=== PATIENT | female | born 1955 | race Caucasian/White ===

== ENCOUNTER 2017-05-18 16:35 | Observation (INO) ==
[2017-05-18 18:03] LABS: Bilirubin,Urine Negative (Negative); Blood,Urine Negative (Negative); Clarity,Urine Clear (Clear); Color,Urine Yellow (Yellow); Glucose,Urine (UA) Normal (Normal); Ketones,Urine Negative (Negative); Leukocyte Esterase,Urine Negative (Negative); Nitrite,Urine Negative (Negative); PH,Urine 6.5 pH Units (5.0-8.0); Protein,Urine Negative (Neg-Trace); Specific Gravity,Urine 1.006 (1.010-1.025); Urobilinogen,Urine Normal (Normal)
[2017-05-18 18:05] LABS: Basophils % 0.5 %; Eosinophils # 0.2 K/mcL (0.0-0.6); Eosinophils % 2.2 %; Hematocrit 37.2 % (35.3-44.9); Hemoglobin 12.9 g/dL (11.5-15.4); Immature Granulocytes % 0.4 % (0-4); Lymphocytes # 1.6 K/mcL (0.6-4.6); Lymphocytes % 19.8 %; Mean Corpuscular HGB Conc 34.7 g/dL (31.6-35.5); Mean Corpuscular Hemoglobin 29.5 pg (28.0-33.3); Mean Corpuscular Volume 85.1 fL (83.0-100.0); Mean Platelet Volume 10.8 fL (9.4-12.4); Monocytes # 0.7 K/mcL (0.0-1.3); Monocytes % 8.3 %; Neutrophils # 5.7 K/mcL (1.6-8.9); Platelet Count 246 K/mcL (140-400); Red Blood Count 4.37 M/mcL (3.82-4.97); Red Cell Distribution Width 14.4 % (11.5-14.5); Segmented Neutrophils % 68.8 %
--- NOTE | 2017-05-18 18:09 | Emergency Department Note ---
Disposition Clinical Impression: Unstable angina Chest pain Qualifiers: Chest pain type: precordial pain Qualified Code(s): R07.2 - Precordial pain Disposition: Admitted As Inpatient Condition: Fair Referrals: Prema Villegas CNP [Primary Care Provider] - Forms: ED Satisfaction Letter Time of Disposition: 19:04 Chest Pain HPI - General Chief Complaint: ED Chest Pain Stated Complaint: CP/HTN Source: patient Limitations: no limitations Vital Signs Reviewed: Yes Nursing Notes Reviewed: Yes - History of Present Illness HPI Narrative: 62-year-old female history of one stent placement one month ago by Dr. Ospina'denny been having chest pain times the past 3 days. Patient states she has been having chest pressure in his mid substernal which she was taking her nitroglycerin that would resolve her pain. Patient states her pain changed from 5 out of 10-10 out of 10 sharp and radiating to neck and arms. Patient states her teeth hurt with the pain. Patient states his pain is new. Patient took her nitroglycerin with no resolution of her symptoms 2 sublingual pills. Patient states the pain went away after 2 hours on its own. Patient states the pain right now as 5 out of 10 pressure. Severity scale (1-10): 5 - Related Data Home Medications Medication Instructions Recorded Confirmed Amiloride/Hydrochlorothiazide 1 each PO DAILY 04/25/17 04/25/17 [Amiloride HCl-Hctz 5-50 mg Tab] Aspirin [Lo-Dose Aspirin EC] 81 mg PO DAILY 04/25/17 04/25/17 Atorvastatin [Lipitor] 40 mg PO HS 04/25/17 04/25/17 Cholecalciferol (D-3) [Vitamin D] 1,000 unit PO DAILY 04/25/17 04/25/17 Ibuprofen [Motrin] 800 mg PO Q8HR PRN 04/25/17 04/25/17 Levothyroxine Sodium [Levoxyl] 150 mcg PO DAILY 04/25/17 04/25/17 Metoprolol [Lopressor] 25 mg PO BID 04/25/17 04/25/17 Pantoprazole Sodium [Protonix] 40 mg PO DAILY 04/25/17 04/25/17 hydrOXYzine HCl [Hydroxyzine HCl] 25 mg PO HS 04/25/17 04/25/17 Metformin HCl [Glucophage] 1,000 mg PO BID 05/18/17 05/18/17 Nitroglycerin 0.3 mg SL Q5MIN PRN 05/18/17 05/18/17 Previous Rx's Medication Instructions Recorded Ticagrelor [Brilinta] 90 mg PO BID #60 tablet 04/25/17 Allergies Allergy/AdvReac Type Severity Reaction Status Date / Time No Known Allergies Allergy Verified 05/06/17 19:00 Review of Systems: Patient complains of diaphoresis as well when she had onset of chest pain All systems ED: reviewed and negative except as stated. Review of Systems: As Per HPI Constitutional: Denies: fever, chills, weakness Eyes: Denies: vision change ENT ED: Denies: congestion Cardiovascular: Reports: chest pain, dyspnea on exertion. Denies: palpitations Respiratory: Reports: cough Gastrointestinal: Denies: abdominal pain, nausea, vomiting Musculoskeletal: Denies: back pain Neurological: Denies: headache Psychiatric: Denies: anxiety Endocrine: Denies: fatigue Hematological/Lymphatic: Denies: easy bleeding Chest Pain PMH - Past Medical History Medical history: Reports: diabetes, GERD, hyperlipidemia, hypertension, myocardial infarction, thyroid disease Surgical history: Reports: hysterectomy, orthopedic, other Psychiatric history: Reports: no psych history [employer] [facility] history: Reports: no [employer] [facility] history - Social History Smoking Status: Never smoker Alcohol use: Reports: none Drug use: Reports: none Physical Exam Vital Signs Temperature 97.6 F 05/18/17 16:49 Pulse Rate 68 05/18/17 16:49 Respiratory Rate 22 05/18/17 16:49 Blood Pressure 124/103 05/18/17 16:49 O2 Sat by Pulse Oximetry 97 05/18/17 16:49 Temperature 97.6 F 05/18/17 16:49 Pulse Rate 68 05/18/17 16:49 Respiratory Rate 22 05/18/17 16:49 Blood Pressure 124/103 05/18/17 16:49 O2 Sat by Pulse Oximetry 98 05/18/17 18:04 Oxygen Delivery Oxygen Delivery Room Air 60-year-old female's alert and oriented 3. Patient is nondiaphoretic. Has no conversational dyspnea and is otherwise appears comfortable at this time. The patient is non-tachycardic and has regular rate and rhythm on auscultation of heart sounds. Patient does have retention with a systolic of 124 but a diastolic of 103 - General Limitations: no limitations General appearance: alert - Head Head exam: atraumatic, normocephalic, normal inspection - Eye Eye exam: Present: normal appearance - ENT ENT exam: normal exam, mucous membranes moist - Neck Neck exam: Present: normal inspection, full ROM, trachea midline - Chest Chest inspection: Present: normal inspection, symmetric chest wall rise - Respiratory Respiratory exam: Present: normal lung sounds bilaterally. Absent: respiratory distress, wheezes - Cardiovascular Cardiovascular exam: Present: regular rate, normal rhythm, normal heart sounds - Extremities Exam Extremities exam: Present: normal inspection, full ROM, normal capillary refill. Absent: tenderness, pedal edema, joint swelling, calf tenderness Course Vital Signs Temperature 97.6 F 05/18/17 16:49 Pulse Rate 68 05/18/17 16:49 Respiratory Rate 22 05/18/17 16:49 Blood Pressure 124/103 05/18/17 16:49 O2 Sat by Pulse Oximetry 97 05/18/17 16:49 Temperature 97.6 F 05/18/17 16:49 Pulse Rate 66 05/18/17 18:30 Respiratory Rate 18 05/18/17 18:30 Blood Pressure 129/71 05/18/17 18:30 O2 Sat by Pulse Oximetry 98 05/18/17 18:30 Oxygen Delivery Oxygen Delivery Nasal Cannula Chest Pain - MDM Narrative Medical decision making narrative: Patient had chest pain symptoms with radiation to left neck and jaw and both shoulders and upper extremities who states she had diaphoresis at the time of onset today with associated dyspnea on exertion that was not responsive to nitroglycerin 2. Patient states she has been having chest pain/pressure for the past 3 days that resolved with nitroglycerin use. Patient is high suspicious for ACS/DE, unstable angina versus patient's pain symptoms as been happening at rest as well. . Patient denies any pleuritic sounds chest pain and has no shortness of breath and has O2 sats 97 and 98% on room air which lowers my concern for PE at this time. Patient really has one stent [address] Ospina. Patient also has a history of diabetes and hypercholesterolemia. Plan is to start patient on aspirin 324 milligrams, nitroglycerin trial to reduce patient's pain to 0. Patient has a heartscore of 6 Patient's pain currently 1/10 after 1 dose of nitroglycerin. Patient's labs came back unremarkable with no elevation of troponin and no elevation of BNP, no signs UTI. Discussed patient's workup with her and our recommendation for admission. Patient understands and agrees to our decision for admission. Patient is accepted for admission for trending of troponins, and follow-up with cardiology. Dr. Tom has accepted Pt for admission. 1900 hrs - Lab Data Lab results reviewed: Yes I reviewed the patient's lab results. Lab results narrative: Short CBC 05/18/17 Range/Units 17:43 WBC 8.3 (4.3-11.1) K/mcL Hgb 12.9 (11.5-15.4) g/dL Hct 37.2 (35.3-44.9) % Plt Count 246 (140-400) K/mcL Neutrophils # 5.7 (1.6-8.9) K/mcL BMP 05/18/17 Range/Units 17:43 Sodium 139 (136-145) mEq/L Potassium 3.7 (3.5-4.5) mEq/L Chloride 103 (98-109) mEq/L Carbon Dioxide 26 (19-29) mEq/L BUN 15 (7-20) mg/dL Creatinine 0.82 (0.57-1.11) mg/dL Glucose 104 H (70-99) mg/dL Calcium 10.0 (8.6-10.8) mg/dL Cardiac Enzymes 05/18/17 Range/Units 17:43 Troponin I 0.00 (0-0.03) ng/mL Liver Function 05/18/17 Range/Units 17:43 Total Bilirubin 1.0 (0.2-1.2) mg/dL Direct Bilirubin 0.4 (0.0-0.5) mg/dL AST 21 (5-34) Units/L ALT 22 (0-55) Units/L Alkaline Phosphatase 83 (38-126) Units/L Albumin 3.7 (3.5-5.0) g/dL Urine 05/18/17 Range/Units 17:45 Urine Color Yellow (Yellow) Urine Clarity Clear (Clear) Urine pH 6.5 (5.0-8.0) pH Units Ur Specific [place] 1.006 L (1.010-1.025) Urine Protein Negative (Neg-Trace) mg/dL Urine Glucose (UA) Normal (Normal) mg/dL Result diagrams: 05/18/17 17:43 05/18/17 17:43 Lab Results 05/18/17 05/18/17 05/18/17 Range/Units 17:43 17:43 17:43 WBC (4.3-11.1) K/mcL RBC (3.82-4.97) M/mcL Hgb (11.5-15.4) g/dL Hct (35.3-44.9) % MCV (83.0-100.0) fL MCH (28.0-33.3) pg MCHC (31.6-35.5) g/dL RDW (11.5-14.5) % Plt Count (140-400) K/mcL MPV (9.4-12.4) fL Immature Gran % (0-4) % Seg Neutrophils % % Lymphocytes % % Monocytes % % Eosinophils % % Basophils % % Neutrophils # (1.6-8.9) K/mcL Lymphocytes # (0.6-4.6) K/mcL Monocytes # (0.0-1.3) K/mcL Eosinophils # (0.0-0.6) K/mcL Basophils # (0.0-0.2) K/mcL PT 10.9 (9.4-12.1) Seconds INR 1.0 APTT 27.1 (26.0-36.0) Seconds Sodium (136-145) mEq/L Potassium (3.5-4.5) mEq/L Chloride (98-109) mEq/L Carbon Dioxide (19-29) mEq/L BUN (7-20) mg/dL Creatinine (0.57-1.11) mg/dL Est GFR ( Amer) (> 60) Est GFR (Non-Af Amer) (> 60) BUN/Creatinine Ratio (6-26) Glucose (70-99) mg/dL Calculated Osmolality (280-300) Calcium (8.6-10.8) mg/dL Total Bilirubin 1.0 (0.2-1.2) mg/dL Direct Bilirubin 0.4 (0.0-0.5) mg/dL Indirect Bilirubin 0.6 (0.0-1.2) mg/dL AST 21 (5-34) Units/L ALT 22 (0-55) Units/L Alkaline Phosphatase 83 (38-126) Units/L Troponin I (0-0.03) ng/mL B-Natriuretic Peptide 21 (0-100) pg/mL Serum Total Protein 7.3 (6.0-8.3) g/dL Albumin 3.7 (3.5-5.0) g/dL Globulin 3.6 H (2.4-3.5) g/dL Albumin/Globulin Ratio 1.0 L (1.1-2.2) Urine Color (Yellow) Urine Clarity (Clear) Urine pH (5.0-8.0) pH Units Ur Specific [place] (1.010-1.025) Urine Protein (Neg-Trace) mg/dL Urine Glucose (UA) (Normal) mg/dL Urine Ketones (Negative) mg/dL Urine Blood (Negative) Urine Nitrite (Negative) Urine Bilirubin (Negative) Urine Urobilinogen (Normal) mg/dL Ur Leukocyte Esterase (Negative) Ur Culture Indicated? (NO) 05/18/17 05/18/17 05/18/17 Range/Units 17:43 17:43 17:43 WBC 8.3 (4.3-11.1) K/mcL RBC 4.37 (3.82-4.97) M/mcL Hgb 12.9 (11.5-15.4) g/dL Hct 37.2 (35.3-44.9) % MCV 85.1 (83.0-100.0) fL MCH 29.5 (28.0-33.3) pg MCHC 34.7 (31.6-35.5) g/dL RDW 14.4 (11.5-14.5) % Plt Count 246 (140-400) K/mcL MPV 10.8 (9.4-12.4) fL Immature Gran % 0.4 (0-4) % Seg Neutrophils % 68.8 % Lymphocytes % 19.8 % Monocytes % 8.3 % Eosinophils % 2.2 % Basophils % 0.5 % Neutrophils # 5.7 (1.6-8.9) K/mcL Lymphocytes # 1.6 (0.6-4.6) K/mcL Monocytes # 0.7 (0.0-1.3) K/mcL Eosinophils # 0.2 (0.0-0.6) K/mcL Basophils # 0.0 (0.0-0.2) K/mcL PT (9.4-12.1) Seconds INR APTT (26.0-36.0) Seconds Sodium 139 (136-145) mEq/L Potassium 3.7 (3.5-4.5) mEq/L Chloride 103 (98-109) mEq/L Carbon Dioxide 26 (19-29) mEq/L BUN 15 (7-20) mg/dL Creatinine 0.82 (0.57-1.11) mg/dL Est GFR ( Amer) > 60 (> 60) Est GFR (Non-Af Amer) > 60 (> 60) BUN/Creatinine Ratio 18 (6-26) Glucose 104 H (70-99) mg/dL Calculated Osmolality 289 (280-300) Calcium 10.0 (8.6-10.8) mg/dL Total Bilirubin (0.2-1.2) mg/dL Direct Bilirubin (0.0-0.5) mg/dL Indirect Bilirubin (0.0-1.2) mg/dL AST (5-34) Units/L ALT (0-55) Units/L Alkaline Phosphatase (38-126) Units/L Troponin I 0.00 (0-0.03) ng/mL B-Natriuretic Peptide (0-100) pg/mL Serum Total Protein (6.0-8.3) g/dL Albumin (3.5-5.0) g/dL Globulin (2.4-3.5) g/dL Albumin/Globulin Ratio (1.1-2.2) Urine Color (Yellow) Urine Clarity (Clear) Urine pH (5.0-8.0) pH Units Ur Specific [place] (1.010-1.025) Urine Protein (Neg-Trace) mg/dL Urine Glucose (UA) (Normal) mg/dL Urine Ketones (Negative) mg/dL Urine Blood (Negative) Urine Nitrite (Negative) Urine Bilirubin (Negative) Urine Urobilinogen (Normal) mg/dL Ur Leukocyte Esterase (Negative) Ur Culture Indicated? (NO) 05/18/17 Range/Units 17:45 WBC (4.3-11.1) K/mcL RBC (3.82-4.97) M/mcL Hgb (11.5-15.4) g/dL Hct (35.3-44.9) % MCV (83.0-100.0) fL MCH (28.0-33.3) pg MCHC (31.6-35.5) g/dL RDW (11.5-14.5) % Plt Count (140-400) K/mcL MPV (9.4-12.4) fL Immature Gran % (0-4) % Seg Neutrophils % % Lymphocytes % % Monocytes % % Eosinophils % % Basophils % % Neutrophils # (1.6-8.9) K/mcL Lymphocytes # (0.6-4.6) K/mcL Monocytes # (0.0-1.3) K/mcL Eosinophils # (0.0-0.6) K/mcL Basophils # (0.0-0.2) K/mcL PT (9.4-12.1) Seconds INR APTT (26.0-36.0) Seconds Sodium (136-145) mEq/L Potassium (3.5-4.5) mEq/L Chloride (98-109) mEq/L Carbon Dioxide (19-29) mEq/L BUN (7-20) mg/dL Creatinine (0.57-1.11) mg/dL Est GFR ( Amer) (> 60) Est GFR (Non-Af Amer) (> 60) BUN/Creatinine Ratio (6-26) Glucose (70-99) mg/dL Calculated Osmolality (280-300) Calcium (8.6-10.8) mg/dL Total Bilirubin (0.2-1.2) mg/dL Direct Bilirubin (0.0-0.5) mg/dL Indirect Bilirubin (0.0-1.2) mg/dL AST (5-34) Units/L ALT (0-55) Units/L Alkaline Phosphatase (38-126) Units/L Troponin I (0-0.03) ng/mL B-Natriuretic Peptide (0-100) pg/mL Serum Total Protein (6.0-8.3) g/dL Albumin (3.5-5.0) g/dL Globulin (2.4-3.5) g/dL Albumin/Globulin Ratio (1.1-2.2) Urine Color Yellow (Yellow) Urine Clarity Clear (Clear) Urine pH 6.5 (5.0-8.0) pH Units Ur Specific [place] 1.006 L (1.010-1.025) Urine Protein Negative (Neg-Trace) mg/dL Urine Glucose (UA) Normal (Normal) mg/dL Urine Ketones Negative (Negative) mg/dL Urine Blood Negative (Negative) Urine Nitrite Negative (Negative) Urine Bilirubin Negative (Negative) Urine Urobilinogen Normal (Normal) mg/dL Ur Leukocyte Esterase Negative (Negative) Ur Culture Indicated? NO (NO) - Radiology Data Radiology results reviewed: Yes I reviewed the patient's radiology results. Chest X-Ray 05/18/17 16:54 IMPRESSION: 1. No acute cardiopulmonary disease. D/ / Justin Balderas MD / Justin Balderas MD Interpreting Provider: Justin Balderas MD - EKG Data EKG attestation: Yes I reviewed and interpreted this EKG. Heart Score - Score History: Highly Suspicious EKG: Non Specific repolarisation Disturbance Age: 45-65 Risk Factors: Equal/Greater than 3 risk factor or history of atherosclerotic disease Troponin: Less than normal limit HEART Score Total: 6
[2017-05-18 18:14] LABS: Prothrombin Time 10.9 Seconds (9.4-12.1)
[2017-05-18] MEDS ORDERED: 0.9 % Sodium Chloride 1,000 ML IVC ONE (18:15)
[2017-05-18] MEDS ORDERED: Aspirin 81 MG TAB.CHEW PO STA (18:16)
[2017-05-18 18:17] LABS: Activated Partial Thrombo Time 27.1 Seconds (26.0-36.0)
[2017-05-18 18:22] LABS: BUN/Creatinine Ratio 18 (6-26); Blood Urea Nitrogen 15 mg/dL (7-20); Carbon Dioxide 26 mEq/L (19-29); Chloride 103 mEq/L (98-109); Glucose 104 mg/dL (70-99); Osmolality,Calculated 289 (280-300); Potassium 3.7 mEq/L (3.5-4.5); Sodium 139 mEq/L (136-145); eGFR For African Americans > 60 (> 60); eGFR For Non-African Americans > 60 (> 60)
[2017-05-18 18:24] LABS: Albumin 3.7 g/dL (3.5-5.0); Bilirubin,Direct 0.4 mg/dL (0.0-0.5); Bilirubin,Indirect 0.6 mg/dL (0.0-1.2); Globulin 3.6 g/dL (2.4-3.5); Total Protein 7.3 g/dL (6.0-8.3)
[2017-05-18] MEDS: Nitroglycerin 0.4 MG TAB.SUBL SL PRN ×2 (18:41→18:49)
--- NOTE | 2017-05-18 18:49 | Emergency Department Note ---
START Narrative - START START: I examined this patient and my medical decision-making was reviewed with the Resident Physician. I agree with the documented findings, disposition and treatment plan as described except to the extent set forth below. 62-year-old female presents emergency room for chest pain. History of a stent recently. Follows with Dr. Ospina. Nitroglycerin relieved her discomfort today. Has had intermittent chest pain for the past 2 and half days. We will need to admit for ACS evaluation and lieu of her recent stent.
--- NOTE | 2017-05-18 21:26 | Internal Med History&Physical ---
Date of Encounter: 05/18/17 Time of Encounter: 21:24 Assessment and Plan (1) Chest pain Current visit: Yes Status: Acute Patient has a known history of CAD and recently had a drug eluting stent placement in the mid-LAD for a functional stenosis, she reports symptoms suggestive of unstable angina, her admission EKG is not concerning for a stent thrombosis, will start her on long acting nitrates, cycle troponin, telemetry monitoring, continue dual antiplatelet therapy, beta blockade, will get cardiology to weigh in regarding optimizing medical management Qualifiers: Chest pain type: precordial pain Qualified Code(s): R07.2 - Precordial pain (2) HTN (hypertension) Current visit: Yes Status: Chronic Known history of hypertension on anti-hypertensives at home which we will continue with BP monitoring Qualifiers: Hypertension type: essential hypertension Qualified Code(s): I10 - Essential (primary) hypertension (3) Diabetes mellitus Current visit: Yes Status: Chronic History of type II diabetes on metformin at home, most recent A1c was 6.3% in February 2017, we will continue heading home medication with sliding scale insulin full hyperglycemia coverage, finger sticks ACHS with ADA diet Qualifiers: Diabetes mellitus type: type 2 Diabetes mellitus complication status: with neurologic complications Diabetes mellitus complication detail: with polyneuropathy Diabetes mellitus oysterman insulin use: without shelter use Qualified Code(s): E11.42 - Type 2 diabetes mellitus with diabetic polyneuropathy (4) Hypothyroidism Current visit: Yes Status: Chronic We will continue home Synthroid dose Qualifiers: Hypothyroidism type: acquired Qualified Code(s): E03.9 - Hypothyroidism, unspecified (5) GERD (gastroesophageal reflux disease) Current visit: Yes Status: Chronic Will continue home PPI Qualifiers: Esophagitis presence: without esophagitis Qualified Code(s): K21.9 - Gastro -esophageal reflux disease without esophagitis Internal Medicine - H&P: HPI Chief complaint: Chest pain Admitted From: Emergency Dept Plans for Post Hospital Care: Home History of present illness: Ms. Jones is a 62 year old female with a history of CAD s/p drug eluting stent placement in the mid LAD for functionally significant stenosis last month on 04/25/17. She was brought to the ER for stuttering chest pain. She reports that since her intervention last month she has been experiencing chest pain that is pressure-like in character, intermittent in timing and lasts for hours. Sometimes it comes on at rest and worse with exertion. It was a 5/10 in severity for some days until today when it worsened to a 10/10 with radiation to the neck, shoulder, arm-arm pain was achy in character - and she could not find any position of comfort. She had associated diaphoresis today with lightheadedness, dyspnea, palpitations, feeling of apprehension but no nausea or vomiting. Nitro was helping at home but not reliably so. She came to the ER today due to persistent symptoms for further evaluation and management. Past Med Surg Social Fam HX - Past Medical History Source: patient Medical history: coronary artery disease (s/p LAD stent), diabetes, GERD, hyperlipidemia, hypertension, myocardial infarction, thyroid disease, other ( hiatal hernia, incisional hernia) Psychiatric history: no psych history - Past Surgical History Surgical History: hysterectomy, orthopedic, other - Social History Smoking Status: Never smoker (but had 2nd hand smoke exposure) Smokeless Tobacco Status: No Alcohol use: none Drug use: none Current living situation: Home - Independent, With Family Activity Level: Independent ambulation - Family History Mother Hx Family Cardiac Disorders: Yes (CABG X 3) Hx Family Endocrine Disorder: Yes (DM) Sister Hx Family Cardiac Disorders: Yes (KS) Brother Hx Family Cardiac Disorders: Yes (KS) - Additional Family History Additional family history: [place]; mother had CABG, brother had KS in his 50's as well as sister who also had it in her 50's, multiple uncles also with KS, no family hx of HTN but multiple family members on both maternal and pternal side have DM Internal Medicine - H&P: Meds Amiloride/Hydrochlorothiazide [Amiloride HCl-Hctz 5-50 mg Tab] 1 each PO DAILY 04/25/17 [History] Aspirin [Lo-Dose Aspirin EC] 81 mg PO DAILY 04/25/17 [History] Atorvastatin [Lipitor] 40 mg PO HS 04/25/17 [History] Cholecalciferol (D-3) [Vitamin D] 1,000 unit PO DAILY 04/25/17 [History] Ibuprofen [Motrin] 800 mg PO Q8HR PRN 04/25/17 [History] Levothyroxine Sodium [Levoxyl] 150 mcg PO QAM 04/25/17 [History] Metoprolol [Lopressor] 25 mg PO BID 04/25/17 [History] Pantoprazole Sodium [Protonix] 40 mg PO DAILY 04/25/17 [History] Ticagrelor [Brilinta] 90 mg PO BID #60 tablet 04/25/17 [Rx] hydrOXYzine HCl [Hydroxyzine HCl] 25 mg PO HS 04/25/17 [History] Metformin HCl [Glucophage] 1,000 mg PO BID 05/18/17 [History] Nitroglycerin 0.3 mg SL Q5MIN PRN 05/18/17 [History] 3 Allergy/AdvReac Type Severity Reaction Status Date / Time simvastatin [From Zocor] AdvReac Abdominal Verified 05/18/17 22:20 Pain All Systems PM: A 10-system review of systems was performed and is negative for pertinent findings except as documented above in the HPI. - Constitutional Vitals: Temp Pulse Resp BP Pulse Ox 97.6 F 71 18 113/55 98 05/18/17 16:49 05/18/17 20:00 05/18/17 20:55 05/18/17 20:55 05/18/17 20:00 GENERAL: Adult female, lying in bed, Alert, not in obvious pain or distress HEENT: NC/AT, EOMI, PERRLA, anicteric sclera, normal conjunctiva, supple, clear nares, moist mucous membranes, RESP: Lungs are clear to auscultation bilaterally, with good AE, no crackles or wheeze CARDIO: Normal heart sounds with RRR, no murmurs, no JVD, no ankle edema GI: Soft, full, no tenderness, no organomegaly felt, normal bowel sounds heard MUSCULOSKELETAL: Grossly normal movements bilaterally, no deformities noted, NEUROLOGIC: CN 2-12 intact grossly. No gross motor/sensory deficit appreciated, PSYCHIATRY: AAO x 3. Mood is fair SKIN: no skin rash or ulcers noted Internal Med - H&P Results - Labs CBC & Chem 7: 05/18/17 17:43 05/18/17 17:43 - EKG Data -: EKG Interpreted by Myself - Diagnostic Studies Chest x-ray Status: image reviewed by me
[2017-05-18] MEDS ORDERED: Naloxone 0.4 MG/ML INJ IVP PRN (21:50)
[2017-05-18] MEDS ORDERED: *HR* Dextrose 50 % in Water (Syg) 50 ML SYRINGE IVP PRN (21:55)
[2017-05-18] MEDS ORDERED: D5% in Water 1,000 ML IVC PRN (21:55)
[2017-05-18] MEDS ORDERED: Dextrose Gel 15 GM PO PRN ×2 (21:55)
[2017-05-18] MEDS: *HR* Ticagrelor 90 MG TABLET PO SCH (22:21)
[2017-05-18] MEDS: Insulin LISPRO 300 UNITS/3 ML VIAL SQ SCH ×2 (22:22→22:55)
[2017-05-18] MEDS: *HR* Metformin 500 MG TABLET PO SCH (23:11)
[2017-05-18] MEDS: Isosorbide MONOnitrate (24 HR) 30 MG TAB.ER.24H PO SCH (23:11)
[2017-05-18] MEDS: hydrOXYzine pamoate 25 MG CAPSULE PO SCH (23:11)
[2017-05-19 04:19] LABS: BUN/Creatinine Ratio 20 (6-26); Blood Urea Nitrogen 16 mg/dL (7-20); Calcium 9.3 mg/dL (8.6-10.8); Carbon Dioxide 25 mEq/L (19-29); Chloride 109 mEq/L (98-109); Glucose 110 mg/dL (70-99); Magnesium 1.3 mg/dL (1.6-2.6); Osmolality,Calculated 296 (280-300); Phosphorous 3.5 mg/dL (2.3-4.7); Potassium 3.4 mEq/L (3.5-4.5); Sodium 142 mEq/L (136-145); eGFR For African Americans > 60 (> 60); eGFR For Non-African Americans > 60 (> 60)
[2017-05-19 07:45] LABS: Lipase 114 Units/L (8-78)
[2017-05-19] MEDS: Insulin LISPRO 300 UNITS/3 ML VIAL SQ SCH ×4 (09:11→20:59)
[2017-05-19] MEDS: Aspirin Enteric Coated 81 MG Tablet PO SCH (09:17)
[2017-05-19] MEDS: Isosorbide MONOnitrate (24 HR) 30 MG TAB.ER.24H PO SCH (09:17)
[2017-05-19] MEDS: *HR* Ticagrelor 90 MG TABLET PO SCH ×2 (09:17→20:57)
[2017-05-19] MEDS: *HR* Metformin 500 MG TABLET PO SCH ×2 (09:17→20:57)
[2017-05-19] MEDS: Cholecalciferol (D-3) 1,000 UNIT TABLET PO SCH (09:18)
--- NOTE | 2017-05-19 12:07 | Cardiology Consult Note ---
<Brian Jeff - Last Filed: 05/19/17 12:04> Date of Encounter: 05/19/17 Time of Encounter: 12:04 Assessment and Plan (1) Chest pain Current Visit: Yes Status: Acute Chest pain concerning for angina since Tuesday--midsternal and left sided pressure, relieved with nitro associated with left arm pain and diaphoresis at times. Has taken multiple nitro each day since Tuesday evening. Recent PCI to mLAD 04/25/17. Has not missed any DAPT doses. Troponins negative x 3. No ischemic EKG changes. Unlikely that stent thrombosed given there are no EKG changes and troponins are negative. Worst chest pain was experienced yesterday. Agree with addition of Imdur 30mg daily. She has received 2 doses and has not had any recurrent chest pain. Reviewed [facility] films with Dr. Ospina. She does have a jailed diagonal that is small. It could be intervened on, but would risk ISR of mid LAD stent. Recommend attempted medical management first. Continue Imdur 30mg daily. Borderline BP--BB decreased. Amiloride/HCTZ stopped. Check limited echo to evaluate EF and wall motion. Echo 04/25/17 EF 60-65%. Continue to follow. Qualifiers: Chest pain type: unspecified Qualified Code(s): R07.9 - Chest pain, unspecified (2) CAD (coronary artery disease) Current Visit: Yes Status: Acute As above. Recent mLAD SHIRA 04/25/17. ASA, Brilinta, Statin, BB. Imdur added. Qualifiers: Coronary Disease-Associated Artery/Lesion type: [place] artery [place] vs. transplanted heart: [place] heart Associated angina: angina presence unspecified Qualified Code(s): I25.10 - Atherosclerotic heart disease of [place] coronary artery without angina pectoris Discussion w patient/family: The assessment and plan as outlined above was discussed with the patient and/or family members who expressed understanding and agreement. All questions were answered. Thank you for involving us in the care of your patient. Please call with any questions. I will discuss all the above with Dr. Lamine Garcia and make changes as necessary. History of Present Illness Consult date: 05/19/17 Requesting physician: Yasmani Wagner Consult reason: Chest pain Chief complaint: Chest pain History of present illness: Ms. Jones is a 62 year old female with a history of CAD s/p drug eluting stent placement in the mid LAD for functionally significant stenosis on . She was brought to the ER for chest pain. She reports she had been feeling great after stent placement without chest pain and fatigue/dyspnea were much improved until Tuesday night. Tuesday night at rest she began to experience left sided chest pressure and left arm pain, relieved with nitro. On Tuesday she had chest pain again, took 2 nitro. Yesterday she reports having the worst chest pain she has ever experienced described as midsternal and associated with diaphoresis at rest. She took 2 nitro with mild improvement, received 3 more nitro in the ED and pain resolved. Troponins negative x 3. She denies missing any ASA or Brilinta doses. No recurrence of pain overnight. Recent CV testing [facility] 04/25/17: PTCA/SHIRA to mLAD for functionally significant stenosis FFR 0.76. Jailed diag--small. 40% pLAD and 40% left PDA. Echo 04/25/17: EF 60-65%, mild LVDD, no significant valve dysfunction, mild phtn est RVSP 41mmHg. Past Med Surg Social Fam HX - Past Medical History Medical history: coronary artery disease (s/p LAD stent), diabetes, GERD, hyperlipidemia, hypertension, myocardial infarction, thyroid disease, other ( hiatal hernia, incisional hernia) Psychiatric history: no psych history - Past Surgical History Surgical History: angioplasty/stent, hysterectomy, orthopedic, other - Social History Smoking Status: Never smoker (but had 2nd hand smoke exposure) Smokeless Tobacco Status: No Alcohol use: none Drug use: none - Family History Mother Hx Family Cardiac Disorders: Yes (CABG X 3) Hx Family Endocrine Disorder: Yes (DM) Sister Hx Family Cardiac Disorders: Yes (MD) Brother Hx Family Cardiac Disorders: Yes (MD) Medications and Allergies Amiloride/Hydrochlorothiazide [Amiloride HCl-Hctz 5-50 mg Tab] 1 each PO DAILY 04/25/17 [History] Aspirin [Lo-Dose Aspirin EC] 81 mg PO DAILY 04/25/17 [History] Atorvastatin [Lipitor] 40 mg PO HS 04/25/17 [History] Cholecalciferol (D-3) [Vitamin D] 1,000 unit PO DAILY 04/25/17 [History] Ibuprofen [Motrin] 800 mg PO Q8HR PRN 04/25/17 [History] Levothyroxine Sodium [Levoxyl] 150 mcg PO QAM 04/25/17 [History] Metoprolol [Lopressor] 25 mg PO BID 04/25/17 [History] Pantoprazole Sodium [Protonix] 40 mg PO DAILY 04/25/17 [History] Ticagrelor [Brilinta] 90 mg PO BID #60 tablet 04/25/17 [Rx] hydrOXYzine HCl [Hydroxyzine HCl] 25 mg PO HS 04/25/17 [History] Metformin HCl [Glucophage] 1,000 mg PO BID 05/18/17 [History] Nitroglycerin 0.3 mg SL Q5MIN PRN 05/18/17 [History] 3 Allergy/AdvReac Type Severity Reaction Status Date / Time simvastatin [From Zocor] AdvReac Abdominal Verified 05/18/17 22:20 Pain All Systems Review: A 10-system review of systems was performed and is negative for pertinent findings except as documented above in the HPI. - Cardiovascular Cardiovascular: as per HPI, chest pain at rest, diaphoresis Physical Examination Vital Signs, Last 4 Hours Temp Pulse Resp BP Pulse Ox 05/19/17 11:08 98.0 F 88 16 94/69 95 05/19/17 08:39 95/68 Vital Signs Temp Pulse Resp BP Pulse Ox 05/19/17 11:08 98.0 F 88 16 94/69 95 05/19/17 08:39 95/68 05/19/17 06:54 97.6 F 73 16 86/55 95 05/19/17 04:47 67 91/65 05/19/17 03:53 97.7 F 67 18 87/58 95 05/18/17 22:47 97.6 F 81 16 91/61 96 05/18/17 20:55 18 113/55 05/18/17 20:00 71 18 130/64 98 05/18/17 19:30 69 18 119/81 98 05/18/17 18:51 75 18 113/61 97 05/18/17 18:30 66 18 129/71 98 05/18/17 18:04 98 05/18/17 17:50 71 18 138/72 98 05/18/17 16:49 97.6 F 68 22 124/103 97 Intake and Output 05/18/17 05/19/17 05/19/17 23:59 07:59 15:59 Intake Total 1000 / 1000 240 / 240 Output Total 550 / 550 Balance 450 / 450 240 / 240 Intake: IV Fluids 1000 / 1000 0.9 % Sodium Chloride 1,000 ML 1000 / 1000 @ 3750 mls/hr IVC .Q16M ONE Rx# :[id number] Oral 240 / 240 Output: Urine 550 / 550 Other: Meal Breakfast Percent of Meal Consumed 100% Weight 93.6 kg 93.395 kg Blood Glucose* 141 114 113 Patient Weight 05/19/17 23:59 Weight 93.395 kg General: Conversant, No Apparent Distress HEENT: Atraumatic, Normocephaly, Mucus Membranes Moist Neck: No JVD, Normal carotid pulses Cardiac: Reg Rate and Rhythm, Normal S1 and S2, No Murmur Lungs: Normal Breath Sounds, No Wheeze, Rales, Rhonchi Neuro: Alert and responsive, No focal deficits noted Abdomen: Soft, Non-Tender Skin: No rashes noted on visualized skin Musculoskeletal: No Chest Wall Tenderness Extremities: No Clubbing, No Cyanosis, No Edema, Normal Pulses Results 05/18/17 17:43 05/19/17 03:19 Lab Results 05/19/17 05/19/17 03:19 03:19 Sodium 142 Potassium 3.4 L Chloride 109 Carbon Dioxide 25 BUN 16 Creatinine 0.81 Glucose 110 H Calcium 9.3 Magnesium 1.3 L Troponin I 0.00 Lipase 114 H Short CBC 05/18/17 Range/Units 17:43 WBC 8.3 (4.3-11.1) K/mcL Hgb 12.9 (11.5-15.4) g/dL Hct 37.2 (35.3-44.9) % Plt Count 246 (140-400) K/mcL Neutrophils # 5.7 (1.6-8.9) K/mcL BMP 05/19/17 05/18/17 Range/Units 03:19 17:43 Sodium 142 139 (136-145) mEq/L Potassium 3.4 L 3.7 (3.5-4.5) mEq/L Chloride 109 103 (98-109) mEq/L Carbon Dioxide 25 26 (19-29) mEq/L BUN 16 15 (7-20) mg/dL Creatinine 0.81 0.82 (0.57-1.11) mg/dL Glucose 110 H 104 H (70-99) mg/dL Calcium 9.3 10.0 (8.6-10.8) mg/dL Cardiac Enzymes 05/19/17 05/18/17 Range/Units 03:19 17:43 Troponin I 0.00 0.00 (0-0.03) ng/mL Liver Function 05/18/17 Range/Units 17:43 Total Bilirubin 1.0 (0.2-1.2) mg/dL Direct Bilirubin 0.4 (0.0-0.5) mg/dL AST 21 (5-34) Units/L ALT 22 (0-55) Units/L Alkaline Phosphatase 83 (38-126) Units/L Albumin 3.7 (3.5-5.0) g/dL Urine 05/18/17 Range/Units 17:45 Urine Color Yellow (Yellow) Urine Clarity Clear (Clear) Urine pH 6.5 (5.0-8.0) pH Units Ur Specific [place] 1.006 L (1.010-1.025) Urine Protein Negative (Neg-Trace) mg/dL Urine Glucose (UA) Normal (Normal) mg/dL Impressions Chest X-Ray 05/18/17 16:54 IMPRESSION: 1. No acute cardiopulmonary disease. D/ / Justin Balderas MD / Justin Balderas MD Interpreting Provider: Justin Balderas MD Active Medications Acetaminophen (Tylenol) 650 mg PO Q6HR PRN PRN Reason: Mild Pain (1-3), headaches Stop: 11/17/17 21:51 Aspirin (Aspirin Ec) 81 mg PO DAILY EUSEBIO Stop: 11/18/17 09:01 Last Admin: 05/19/17 09:17 Dose: 81 mg Atorvastatin Calcium (Lipitor) 40 mg PO HS EUSEBIO Stop: 11/17/17 22:46 Last Admin: 05/18/17 23:12 Dose: 40 mg Dextrose/Water (Dextrose 50% (Syg)) 25 ml IVP AD PRN PRN Reason: Hypoglycemia Stop: 11/17/17 21:56 Glucagon (Glucagen) 1 mg IM ONCE PRN PRN Reason: Hypoglycemia Stop: 11/17/17 21:56 Glucose (Gluctose) 15 gm PO ONCE PRN PRN Reason: Hypoglycemia Stop: 11/17/17 21:56 Glucose (Gluctose) 30 gm PO ONCE PRN PRN Reason: Hypoglycemia Stop: 11/17/17 21:56 Hydroxyzine Pamoate (Hydroxyzine Pamoate) 25 mg PO HS [facility] Stop: 11/17/17 22:01 Last Admin: 05/18/17 23:11 Dose: 25 mg Dextrose (Dextrose 5%) 1,000 mls @ 100 mls/hr IVC .Q10H PRN PRN Reason: HYPOGLYCEMIA Stop: 11/17/17 21:56 Insulin Human Lispro (Humalog) 0 units SQ HS EUSEBIO PRN Reason: Protocol Stop: 11/17/17 22:01 Last Admin: 05/18/17 22:55 Dose: Not Given Insulin Human Lispro (Humalog) 0 units SQ TIDAC [facility] PRN Reason: Protocol Stop: 11/17/17 22:01 Last Admin: 05/19/17 11:36 Dose: Not Given Isosorbide Mononitrate (Imdur) 30 mg PO DAILY [facility] Stop: 11/17/17 22:01 Last Admin: 05/19/17 09:17 Dose: 30 mg Levothyroxine Sodium (Synthroid) 150 mcg PO QAM [facility] Stop: 11/18/17 09:01 Last Admin: 05/19/17 09:18 Dose: 150 mcg Metformin HCl (Glucophage) 1,000 mg PO BID [facility] Stop: 11/17/17 22:01 Last Admin: 05/19/17 09:17 Dose: 1,000 mg Metoprolol Tartrate (Lopressor) 12.5 mg PO BID [facility] Stop: 11/18/17 21:01 Naloxone HCl (Narcan) 0.4 mg IVP Q2MIN PRN PRN Reason: Opioid Reversal Stop: 11/17/17 21:51 Nitroglycerin (Nitroglycerin) 0.4 mg SL Q5MIN PRN PRN Reason: Chest Pain Stop: 11/17/17 18:16 Last Admin: 05/18/17 18:49 Dose: 0.4 mg Nitroglycerin (Nitroglycerin) 0.3 mg SL Q5MIN PRN PRN Reason: Chest Pain Omeprazole (Prilosec) 20 mg PO DAILY [facility] Stop: 11/18/17 09:01 Last Admin: 05/19/17 09:18 Dose: 20 mg Ticagrelor (Brilinta) 90 mg PO BID [facility] Stop: 11/17/17 22:01 Last Admin: 05/19/17 09:17 Dose: 90 mg Vitamin D (Vitamin D) 1,000 unit PO DAILY [facility] Stop: 11/18/17 09:01 Last Admin: 05/19/17 09:18 Dose: 1,000 unit - Imaging and Cardiology Stress Test: report reviewed Echo: report reviewed - EKG Interpretation EKG results cardiology: personally reviewed (SR, no changes from prior), other ( 12 hr tele AVG HR 73, SR, no significant pauses or arrhythmias.) Consult Discharge Plan - Plan Referrals: Prema Villegas, STENOGRAPHER SECRETARY [Primary Care Provider] - <Lamine Garcia - Last Filed: 05/19/17 14:21> Date of Encounter: 05/19/17 - Attending Attestation I have personally performed a face to face evaluation on this patient. I have reviewed and agree with the care plan. History and Exam by me shows: S/P recent stent. Presents with chest pain with typical and atypical features. BRUCE negative. At this point would favor medical mgmt. If recurrent pain will consider repeat invasive eval. Assessment and Plan Discussion w patient/family: The assessment and plan as outlined above was discussed with the patient and/or family members who expressed understanding and agreement. All questions were answered. Thank you for involving us in the care of your patient. Please call with any questions. History of Present Illness History of present illness: Ms. Jones is a 62 year old female All Systems Review: A 10-system review of systems was performed and is negative for pertinent findings except as documented above in the HPI. Physical Examination Vital Signs, Last 4 Hours Temp Pulse Resp BP Pulse Ox 05/19/17 11:08 98.0 F 88 16 94/69 95 Results 05/18/17 17:43 05/19/17 03:19 Lab Results 05/19/17 05/19/17 03:19 03:19 Sodium 142 Potassium 3.4 L Chloride 109 Carbon Dioxide 25 BUN 16 Creatinine 0.81 Glucose 110 H Calcium 9.3 Magnesium 1.3 L Troponin I 0.00 Lipase 114 H
[2017-05-19] MEDS: Magnesium Oxide 400 MG TABLET PO SCH (16:03)
[2017-05-19] MEDS: Acetaminophen 325 MG TABLET PO PRN (16:05)
--- NOTE | 2017-05-19 17:32 | Internal Med Progress Note ---
Date of Encounter: 05/19/17 Time of Encounter: 13:35 - Assessment and plan (1) Chest pain Current Visit: Yes Status: Acute Assessment and plan: Patient with known history of coronary artery disease, recent PCI with SHIRA placement in mid LAD. She reports continuing symptoms suggestive of unstable angina she was started on long acting nitrates and was seen by cardiology. She will continue telemetry and her DAPT, beta jin. During examination, patient denies chest pain, however she does complain of upper abdominal pain, most likely due to gallbladder and hiatal hernia. She reports her pressure after eating. She will need to follow-up with primary care for continued workup and evaluation for gallbladder disease. She states she is aware that she needs surgery for the hiatal hernia, however she is to wait 1 year and 18 the dual antiplatelet therapy before she can have surgery. She was seen by cardiology. She reports then that she had midsternal and left- sided chest pressure that was relieved with nitroglycerin, there was radiation to the left arm and diaphoresis. Onset 3 days prior to arrival. Troponins were negative 3 EKG showed no ischemic changes. Cardiology agrees with continuing Imdur 30 mg by mouth daily, she has had relief of the chest pain since she began taking it. Hydrology Teacher reviewed her [facility] films, there is an area that could be intervened, however would risk IS are of mid LAD stent. Cardiology currently recommends attempted medical management with continuing the Imdur. They also decreased her beta jin and stop the MLO ride/HCTZ. Patient will have a limited echo to evaluate EF and wall motion. She had a normal echo 1 month ago. Cardiology is on board and will continue to follow. Qualifiers: Chest pain type: unspecified Qualified Code(s): R07.9 - Chest pain, unspecified (2) Morbid obesity with BMI of 40.0-44.9, adult Current Visit: Yes Status: Chronic Assessment and plan: Chronic. Lifestyle changes. (3) HTN (hypertension) Current Visit: Yes Status: Chronic Assessment and plan: Patient with borderline hypotension. Her beta jin has been decreased, [place]/ HCTZ has been stopped. We will continue to monitor blood pressure and treat accordingly. Qualifiers: Hypertension type: essential hypertension Qualified Code(s): I10 - Essential (primary) hypertension (4) Diabetes mellitus Current Visit: Yes Status: Chronic Assessment and plan: A1c was 6.3 in February. We will redraw again in the morning. Continue sliding scale insulin, Accu-Cheks before meals at bedtime, and diabetic diet during admission. Qualifiers: Diabetes mellitus type: type 2 Diabetes mellitus complication status: with neurologic complications Diabetes mellitus complication detail: with polyneuropathy Diabetes mellitus terminal worker insulin use: without fpc use Qualified Code(s): E11.42 - Type 2 diabetes mellitus with diabetic polyneuropathy (5) Hypothyroidism Current Visit: Yes Status: Chronic Assessment and plan: Continue home medications. TSH was within normal limits in February,. Qualifiers: Hypothyroidism type: acquired Qualified Code(s): E03.9 - Hypothyroidism, unspecified (6) GERD (gastroesophageal reflux disease) Current Visit: Yes Status: Chronic Assessment and plan: Chronic. Continue medication. Patient denies any symptoms of esophagitis. Qualifiers: Esophagitis presence: without esophagitis Qualified Code(s): K21.9 - Gastro -esophageal reflux disease without esophagitis (7) CAD (coronary artery disease) Current Visit: Yes Status: Acute Assessment and plan: Plan as above. Qualifiers: Coronary Disease-Associated Artery/Lesion type: [place] artery [place] vs. transplanted heart: [place] heart Associated angina: angina presence unspecified Qualified Code(s): I25.10 - Atherosclerotic heart disease of [place] coronary artery without angina pectoris (8) DVT prophylaxis Current Visit: Yes Status: Acute Assessment and plan: Early ambulation. Patient is on dual antiplatelet therapy for stent. - Time Spent With Patient less than 15 minutes - Subjective Interval history: Patient was seen and assessed at 1335 today. She reports right upper quadrant pain, most likely her gallbladder, as well as a hiatal hernia is causing a pressure after eating. She reports that in 1981 she was told that she had sludge in gallbladder, abdominal pain has become better since stopping Zocor 2008. Patient and I discussed that I would not be able to do a workup for her gallbladder while she is inpatient. Abdomen is soft and nontender to palpation with bowel sounds present. She denies any nausea vomiting or diarrhea. She also denies any chest pain, shortness of breath, headache, blurred vision, dizziness or lightheadedness, syncope or near-syncope. - Constitutional Vitals: Temp Pulse Resp BP Pulse Ox 98.8 F 89 16 89/66 96 05/19/17 14:35 05/19/17 14:35 05/19/17 14:35 05/19/17 16:19 05/19/17 14:35 General appearance: Present: cooperative, A&O X 3, morbidly obese, pleasant, no acute distress, answers questions appropriately - Head Head exam: Present: atraumatic, normal inspection, normocephalic - Eye Eye exam: Present: normal appearance, conjuntiva pink, sclera anicteric - Neck Neck exam general surgery: Present: normal inspection, supple, trachea midline. Absent: lymphadenopathy, tenderness - Respiratory Respiratory exam: Present: CTAB. Absent: accessory muscle use, chest wall tenderness, decreased breath sounds, rales, respiratory distress, rhonchi, wheezes - Cardiovascular Cardiovascular exam: Present: RRR, +S1, +S2. Absent: clicks, diastolic murmur, gallop, rubs, systolic murmur - GI/Abdominal GI/Abdominal exam: Present: normal bowel sounds, soft. Absent: distended, hepatomegaly, tenderness - Extremities Exam Extremities exam: Present: normal capillary refill, warm, radial pulses palpable and symmetrical. Absent: calf tenderness, cyanotic, pedal edema, tenderness - Neurological Exam Neurological exam: Present: alert, oriented X3, no focal deficits. Absent: altered, facial droop, speech deficit - Skin Skin exam: Present: dry, intact, normal color, warm. Absent: rash Internal Medicine: Result - Labs CBC & Chem 7: 05/18/17 17:43 05/19/17 03:19 Labs: BMP 05/19/17 03:19 Sodium 142 Potassium 3.4 L Chloride 109 Carbon Dioxide 25 BUN 16 Creatinine 0.81 Glucose 110 H Calcium 9.3 Cardiac Enzymes 05/19/17 Range/Units 03:19 Troponin I 0.00 (0-0.03) ng/mL - ABG Interpretation ABG results: PT/INR, D-dimer PT 10.9 Seconds (9.4-12.1) 05/18/17 17:43 Consult Discharge Plan - Plan Referrals: Prema Villegas, AIRLINE MECHANIC [Primary Care Provider] -
--- NOTE | 2017-05-19 20:19 | Electrocardiograph Report ---
[place] [id number] Test Date: 2017-05-18 Pat Name: Gely Jones Department: 104 Room: 3B Gender: F Telesales Manager: RYAN : 1955 Requested By: Nabila See Order Number: [id number] Reading MD: Kei Ospina MD Measurements Intervals [place] Rate: 67 P: 42 KS: 154 QRS: 31 QRSD: 92 T: 12 QT: 402 QTc: 417 Interpretive Statements SINUS RHYTHM BASELINE ARTIFACT Electronically Signed On 05-19-2017 20:17:45 EDT by Kei Ospina MD
[2017-05-19] MEDS: hydrOXYzine pamoate 25 MG CAPSULE PO SCH (20:57)
[2017-05-19] MEDS: *HR* Heparin 5,000 UNIT/ML VIAL SQ SCH (21:01)
[2017-05-20] MEDS: *HR* Heparin 5,000 UNIT/ML VIAL SQ SCH ×2 (05:28→15:51)
[2017-05-20 07:51] LABS: Basophils % 0.5 %; Eosinophils # 0.2 K/mcL (0.0-0.6); Eosinophils % 2.8 %; Hematocrit 35.3 % (35.3-44.9); Immature Granulocytes % 0.3 % (0-4); Lymphocytes # 1.3 K/mcL (0.6-4.6); Lymphocytes % 20.8 %; Mean Corpuscular Hemoglobin 29.9 pg (28.0-33.3); Mean Corpuscular Volume 87.8 fL (83.0-100.0); Monocytes # 0.6 K/mcL (0.0-1.3); Monocytes % 9.3 %; Neutrophils # 4.1 K/mcL (1.6-8.9); Nucleated Red Blood Cells 0.3 /100 WBC (0); Platelet Count 214 K/mcL (140-400); Red Blood Count 4.02 M/mcL (3.82-4.97); Red Cell Distribution Width 14.3 % (11.5-14.5); Segmented Neutrophils % 66.3 %
[2017-05-20 08:02] LABS: BUN/Creatinine Ratio 22 (6-26); Blood Urea Nitrogen 18 mg/dL (7-20); Calcium 9.6 mg/dL (8.6-10.8); Carbon Dioxide 24 mEq/L (19-29); Chloride 107 mEq/L (98-109); Glucose 102 mg/dL (70-99); Osmolality,Calculated 294 (280-300); Potassium 3.8 mEq/L (3.5-4.5); Sodium 141 mEq/L (136-145); eGFR For African Americans > 60 (> 60); eGFR For Non-African Americans > 60 (> 60)
[2017-05-20] MEDS: Insulin LISPRO 300 UNITS/3 ML VIAL SQ SCH ×2 (10:07→12:28)
[2017-05-20] MEDS: *HR* Metformin 500 MG TABLET PO SCH (10:09)
[2017-05-20] MEDS: *HR* Ticagrelor 90 MG TABLET PO SCH (10:10)
[2017-05-20] MEDS: Cholecalciferol (D-3) 1,000 UNIT TABLET PO SCH (10:10)
[2017-05-20] MEDS: Magnesium Oxide 400 MG TABLET PO SCH (10:10)
[2017-05-20] MEDS: Aspirin Enteric Coated 81 MG Tablet PO SCH (10:10)
[2017-05-20] MEDS: Isosorbide MONOnitrate (24 HR) 30 MG TAB.ER.24H PO SCH (10:10)
[2017-05-20] MEDS: Acetaminophen 325 MG TABLET PO PRN (10:23)
--- NOTE | 2017-05-20 12:37 | Cardiology Progress Note ---
Date of Encounter: 05/20/17 Time of Encounter: 12:35 Assessment and Plan (1) Chest pain Current Visit: Yes Status: Acute Chest pain concerning for angina since Tuesday--midsternal and left sided pressure, relieved with nitro associated with left arm pain and diaphoresis at times. Has taken multiple nitro each day since Tuesday evening. Recent PCI to mLAD 04/25/17. Has not missed any DAPT doses. Troponins negative x 3. No ischemic EKG changes. Unlikely that stent thrombosed given there are no EKG changes and troponins are negative. Worst chest pain was experienced yesterday. Agree with addition of Imdur 30mg daily. She has not had any recurrent chest pain. Reviewed [facility] films with Dr. Ospina. She does have a jailed diagonal that is small. It could be intervened on, but would risk compromsing her mid LAD stent. Recommend attempted medical management first. Continue Imdur 30mg daily. Borderline BP--BB decreased. Amiloride/HCTZ stopped. Limited echo shows preserved EF and normal wall motion. Follow-up as outpt--will coordinate. Cardiology signing off. Reconsult PRN. Qualifiers: Chest pain type: unspecified Qualified Code(s): R07.9 - Chest pain, unspecified (2) CAD (coronary artery disease) Current Visit: Yes Status: Acute As above. Recent mLAD SHIRA 04/25/17. ASA, Brilinta, Statin, BB. Imdur added. Qualifiers: Coronary Disease-Associated Artery/Lesion type: [place] artery [place] vs. transplanted heart: [place] heart Associated angina: angina presence unspecified Qualified Code(s): I25.10 - Atherosclerotic heart disease of [place] coronary artery without angina pectoris Discussion w patient/family: The assessment and plan as outlined above was discussed with the patient and/or family members who expressed understanding and agreement. All questions were answered. Thank you for involving us in the care of your patient. Please call with any questions. I will discuss all the above with Dr. Lamine Garcia and make changes as necessary. Subjective Principal diagnosis: Chest pain, CAD Interval history: Pt denies chest pain this AM. Reports intermittent dyspnea. Echo resulted--EF normal with normal wall motion. Objective Vital Signs, Last 4 Hours Temp Pulse Resp BP Pulse Ox 05/20/17 11:12 98.2 F 82 17 119/67 94 Vital Signs Temp Pulse Resp BP Pulse Ox 05/20/17 11:12 98.2 F 82 17 119/67 94 05/20/17 06:42 98.0 F 77 18 109/65 96 05/20/17 03:44 97.9 F 78 18 96/67 95 05/19/17 23:30 97.8 F 76 14 85/60 95 05/19/17 19:15 99.2 F 85 18 147/75 95 05/19/17 16:19 89/66 05/19/17 14:35 98.8 F 89 16 90/60 96 Intake and Output 05/19/17 05/20/17 05/20/17 23:59 07:59 15:59 Intake Total 720 / 720 Balance 720 / 720 Intake: Oral 720 / 720 Other: Meal Dinner Breakfast Percent of Meal Consumed 100% 100% Weight 92.351 kg Blood Glucose* 114 114 110 Patient Weight 05/20/17 23:59 Weight 92.351 kg General: Conversant, No Apparent Distress HEENT: Atraumatic, Normocephaly, Mucus Membranes Moist Neck: No JVD, Normal carotid pulses Cardiac: Reg Rate and Rhythm, Normal S1 and S2, No Murmur Lungs: Normal Breath Sounds, No Wheeze, Rales, Rhonchi Neuro: Alert and responsive, No focal deficits noted Abdomen: Soft, Non-Tender Skin: No rashes noted on visualized skin Musculoskeletal: No Chest Wall Tenderness Extremities: No Clubbing, No Cyanosis, No Edema, Normal Pulses Results 05/20/17 06:36 05/20/17 06:36 Lab Results 05/20/17 05/20/17 06:36 06:36 WBC 6.2 Hgb 12.0 Hct 35.3 Plt Count 214 Sodium 141 Potassium 3.8 Chloride 107 Carbon Dioxide 24 BUN 18 Creatinine 0.83 Glucose 102 H Calcium 9.6 Short CBC 05/20/17 Range/Units 06:36 WBC 6.2 (4.3-11.1) K/mcL Hgb 12.0 (11.5-15.4) g/dL Hct 35.3 (35.3-44.9) % Plt Count 214 (140-400) K/mcL Neutrophils # 4.1 (1.6-8.9) K/mcL BMP 05/20/17 Range/Units 06:36 Sodium 141 (136-145) mEq/L Potassium 3.8 (3.5-4.5) mEq/L Chloride 107 (98-109) mEq/L Carbon Dioxide 24 (19-29) mEq/L BUN 18 (7-20) mg/dL Creatinine 0.83 (0.57-1.11) mg/dL Glucose 102 H (70-99) mg/dL Calcium 9.6 (8.6-10.8) mg/dL Impressions Echocardiogram Limited Views 05/19/17 12:16 Impressions: Normal LV systolic function, LVEF 65-70%. Normal right ventricular size and function. Valvular function was not assessed on this limited study. Left Ventricular Wall Motion: Rest Echo Findings All wall segments showed normal motion. Findings: Study Quality * Technically adequate exam. ECG Findings * Normal sinus rhythm. Left Ventricle * Normal LV systolic function, LVEF 65-70%. * Normal LV chamber size and wall thickness. Right Ventricle * Normal right ventricular size and function. Left Atrium * Mildly dilated left atrium. Right Atrium * Normal right atrial size. Aorta * Normally sized aortic root. Pericardium * There is no pericardial effusion present. Active Medications Acetaminophen (Tylenol) 650 mg PO Q6HR PRN PRN Reason: Mild Pain (1-3), headaches Stop: 11/17/17 21:51 Last Admin: 05/20/17 10:23 Dose: 650 mg Aspirin (Aspirin Ec) 81 mg PO DAILY [facility] Stop: 11/18/17 09:01 Last Admin: 05/20/17 10:10 Dose: 81 mg Atorvastatin Calcium (Lipitor) 40 mg PO HS [facility] Stop: 11/17/17 22:46 Last Admin: 05/19/17 20:57 Dose: 40 mg Dextrose/Water (Dextrose 50% (Syg)) 25 ml IVP AD PRN PRN Reason: Hypoglycemia Stop: 11/17/17 21:56 Glucagon (Glucagen) 1 mg IM ONCE PRN PRN Reason: Hypoglycemia Stop: 11/17/17 21:56 Glucose (Gluctose) 15 gm PO ONCE PRN PRN Reason: Hypoglycemia Stop: 11/17/17 21:56 Glucose (Gluctose) 30 gm PO ONCE PRN PRN Reason: Hypoglycemia Stop: 11/17/17 21:56 Heparin Sodium (Porcine) (Heparin) 5,000 unit SQ Q8HCO [facility] Stop: 11/18/17 22:01 Last Admin: 05/20/17 05:28 Dose: 5,000 unit Hydroxyzine Pamoate (Hydroxyzine Pamoate) 25 mg PO HS [facility] Stop: 11/17/17 22:01 Last Admin: 05/19/17 20:57 Dose: 25 mg Dextrose (Dextrose 5%) 1,000 mls @ 100 mls/hr IVC .Q10H PRN PRN Reason: HYPOGLYCEMIA Stop: 11/17/17 21:56 Insulin Human Lispro (Humalog) 0 units SQ HS [facility] PRN Reason: Protocol Stop: 11/17/17 22:01 Last Admin: 05/19/17 20:59 Dose: Not Given Insulin Human Lispro (Humalog) 0 units SQ TIDAC [facility] PRN Reason: Protocol Stop: 11/17/17 22:01 Last Admin: 05/20/17 12:28 Dose: Not Given Isosorbide Mononitrate (Imdur) 30 mg PO DAILY [facility] Stop: 11/17/17 22:01 Last Admin: 05/20/17 10:10 Dose: 30 mg Levothyroxine Sodium (Synthroid) 150 mcg PO QAM [facility] Stop: 11/18/17 09:01 Last Admin: 05/20/17 10:09 Dose: 150 mcg Magnesium Oxide (Mag-Ox) 400 mg PO DAILY [facility] PRN Reason: Protocol Stop: 11/18/17 13:16 Last Admin: 05/20/17 10:10 Dose: 400 mg Metformin HCl (Glucophage) 1,000 mg PO BID [facility] Stop: 11/17/17 22:01 Last Admin: 05/20/17 10:09 Dose: 1,000 mg Metoprolol Tartrate (Lopressor) 12.5 mg PO BID [facility] Stop: 11/18/17 21:01 Last Admin: 05/20/17 12:30 Dose: 12.5 mg Naloxone HCl (Narcan) 0.4 mg IVP Q2MIN PRN PRN Reason: Opioid Reversal Stop: 11/17/17 21:51 Nitroglycerin (Nitroglycerin) 0.4 mg SL Q5MIN PRN PRN Reason: Chest Pain Stop: 11/17/17 18:16 Last Admin: 05/18/17 18:49 Dose: 0.4 mg Nitroglycerin (Nitroglycerin) 0.3 mg SL Q5MIN PRN PRN Reason: Chest Pain Omeprazole (Prilosec) 20 mg PO DAILY [facility] Stop: 11/18/17 09:01 Last Admin: 05/20/17 10:09 Dose: 20 mg Ticagrelor (Brilinta) 90 mg PO BID [facility] Stop: 11/17/17 22:01 Last Admin: 05/20/17 10:10 Dose: 90 mg Vitamin D (Vitamin D) 1,000 unit PO DAILY [facility] Stop: 11/18/17 09:01 Last Admin: 05/20/17 10:10 Dose: 1,000 unit - Imaging and Cardiology Echo: report reviewed - EKG Interpretation EKG results cardiology: other (12 hr tele AVG HR 80, SR, no significant pauses or arrhythmias) Consult Discharge Plan - Plan Referrals: Prema Villegas, SENIOR [employer] DAT[employer] DEVELOPER [Primary Care Provider] -
[2017-05-20 15:56] VITALS: BP 133/75
--- NOTE | 2017-05-20 16:49 | Discharge Summary ---
Date of Encounter: 05/20/17 Time of Encounter: 13:40 - Discharge Diagnosis (1) Chest pain Priority: Primary Status: Acute Comments: Patient was initially admitted for intermittent chest pain. She had a drug- eluting stent placed in the mid LAD for functionally significant stenosis last month on 04/25/2017. Since that time, she reports that she has had chest pain pressure-like in character, intermittent that lasts for hours. Sometimes it begins at rest, becomes worse with exertion. It remained unchanged until day of admission when it worsened to a 10/10 with radiation to the left neck shoulder and arm. She was unable to get comfortable at home and had associated diaphoresis, lightheadedness, dyspnea, palpitations, but denies nausea or vomiting. She received partial relief from nitroglycerin at home and arrived in the emergency department for further evaluation. She has not missed any DA PT doses. Troponins were negative 3. EKG was normal sinus rhythm with no ischemic changes. Patient had a limited echocardiogram that showed preserved EF. She was evaluated by cardiology, Imdur 30 mg by mouth daily was added, she has not had any recurrent chest pain since that time. Cardiology reviewed CT films she does have a small blockage, it could be stented, but with brisk compromising her mid LAD stent. She will continue the Imdur at home, she will have close follow-up outpatient, she continues to have chest pain she can have another [facility] with possible stent placement. Patient is currently chest pain-free at this time. She denies headache, blurred vision, neck pain, nausea, vomiting, diaphoresis, chest pain, pressure, or shortness of breath. Qualifiers: Chest pain type: unspecified Qualified Code(s): R07.9 - Chest pain, unspecified (2) Morbid obesity with BMI of 40.0-44.9, adult Priority: Secondary Status: Chronic Comments: Chronic. Continue lifestyle modifications and diet. (3) HTN (hypertension) Priority: Secondary Status: Chronic Comments: Chronic. Well controlled in inpatient setting. Continue home medications. Qualifiers: Hypertension type: essential hypertension Qualified Code(s): I10 - Essential (primary) hypertension (4) Diabetes mellitus Priority: Secondary Status: Chronic Comments: A1c was 6.3 in February. Patient will continue her prescribed regimen at home with [employer] and physician follow-up appointments. Qualifiers: Diabetes mellitus type: type 2 Diabetes mellitus complication status: with neurologic complications Diabetes mellitus complication detail: with polyneuropathy Diabetes mellitus nursing home insulin use: without moth exterminator use Qualified Code(s): E11.42 - Type 2 diabetes mellitus with diabetic polyneuropathy (5) Hypothyroidism Priority: Secondary Status: Chronic Comments: TSH is within normal limits in February,. Continue home medication. Qualifiers: Hypothyroidism type: acquired Qualified Code(s): E03.9 - Hypothyroidism, unspecified (6) GERD (gastroesophageal reflux disease) Priority: Secondary Status: Chronic Comments: Chronic. Continue home medications. Patient denies any symptoms of reflux or esophagitis. Qualifiers: Esophagitis presence: without esophagitis Qualified Code(s): K21.9 - Gastro -esophageal reflux disease without esophagitis (7) CAD (coronary artery disease) Priority: Secondary Status: Acute Comments: Patient denies chest pain. She will continue aspirin, statin, Imdur, Qualifiers: Coronary Disease-Associated Artery/Lesion type: [place] artery [place] vs. transplanted heart: [place] heart Associated angina: angina presence unspecified Qualified Code(s): I25.10 - Atherosclerotic heart disease of [place] coronary artery without angina pectoris (8) DVT prophylaxis Priority: Secondary Status: Acute - Discharge Medications Prescriptions: Isosorbide MONOnitrate (24 HR) [Imdur] 30 mg PO DAILY #30 tab.er.24h Home Medications: Aspirin [Lo-Dose Aspirin EC] 81 mg PO DAILY 04/25/17 [History] Atorvastatin [Lipitor] 40 mg PO HS 04/25/17 [History] Cholecalciferol (D-3) [Vitamin D] 1,000 unit PO DAILY 04/25/17 [History] Ibuprofen [Motrin] 800 mg PO Q8HR PRN 04/25/17 [History] Levothyroxine Sodium [Levoxyl] 150 mcg PO QAM 04/25/17 [History] Metoprolol [Lopressor] 25 mg PO BID 04/25/17 [History] Pantoprazole Sodium [Protonix] 40 mg PO DAILY 04/25/17 [History] Ticagrelor [Brilinta] 90 mg PO BID #60 tablet 04/25/17 [Rx] hydrOXYzine HCl [Hydroxyzine HCl] 25 mg PO HS 04/25/17 [History] Metformin HCl [Glucophage] 1,000 mg PO BID 05/18/17 [History] Nitroglycerin 0.3 mg SL Q5MIN PRN 05/18/17 [History] Isosorbide MONOnitrate (24 HR) [Imdur] 30 mg PO DAILY #30 tab.er.24h 05/20/17 [ Rx] Allergies/Adverse Reactions: 3 Allergy/AdvReac Type Severity Reaction Status Date / Time simvastatin [From Zocor] AdvReac Abdominal Verified 05/18/17 22:20 Pain Procedures/tests Complete & Pending: Procedures Performed prior 72 hours Category Date Time Status EV limited echocardiogram Routine Y 05/19/17 12:16 Completed Date of admission: 05/18/17 19:47 Primary care physician: Prema Villegas CNP Consults: 05/18/17 21:53 Consult to Cardiology [CONS] Routine Comment: Consulting Provider: Cardiology Miriam Reason for Consult: pls assist in managing this pt of hernandez Schwarz Call Completed: No 05/18/17 22:01 Consult to [employer] [CONS] Routine Reason for SW Consult: pt requests advance directives Discharging clinician: Darlene Tovar Anticipated date of discharge: 05/20/17 - Patient Status Disposition: Home, Self-Care Condition: Good Functional capacity at discharge: independent ambulation Overall status at discharge: patient is back to baseline - Discharge Instructions Follow Up With: Prema Villegsa CNP [Primary Care Provider] - Additional Instructions: Follow up with your PCP in the next 7-10 days for a follow up visit. REturn to the ER as needed for any other problems or concerns, or if your symptoms return or worsen. Take your medications as directed. Start your Imdur tomorrow. Return to your normal activities as tolerated. - Diet and Activity Activity: increase activity as tolerated, resume usual activities as tolerated Diet: diabetic diet, low fat, low cholesterol, low salt diet Hospital course: Ms. Jones is a 62 year old female with past medical history of unstable angina , hypertension, diabetes, hypothyroidism, GERD, coronary artery disease, and morbid obesity. She was admitted for chest pain concerning for angina since Tuesday. It was midsternal and left-sided pressure, relieved with nitroglycerin and rest. Associated left arm pain with diaphoresis and nausea. Patient had been taking multiple nitroglycerin every day. Patient had recent PCI M LAD on and denies missing any doses of antiplatelet therapy. Her troponins were negative 3 and no ischemic EKG changes. Cardiology evaluated the patient and we have added Imdur 30 mg by mouth daily and she has not had any recurrent chest pain since the addition of the medication. While she was here, she has a limited echocardiogram that showed preserved EF and normal wall motion. [facility] films were reviewed by coat cutter and that she does have a jailed diagonal that is small, risks outweighed the benefits. Her beta jin has been decreased and the interval arrived/HCTZ has been stopped. Patient will get close follow-up with cardiology and if she continues to have chest pain, LHC electively is an option. Patient is chest pain-free, labs are within normal limits, her vital signs are stable and within normal limits. Patient is appropriate for discharge - Time Spent with Patient Total time spent providing and/or coordinating discharge services: Less than 30 minutes - Constitutional Vitals: Temp Pulse Resp BP Pulse Ox 98.0 F 81 16 133/75 94 05/20/17 15:52 05/20/17 15:52 05/20/17 15:52 05/20/17 15:52 05/20/17 15:52 General appearance: Present: cooperative, A&O X 3, morbidly obese, pleasant, no acute distress, answers questions appropriately - Head Head exam: Present: atraumatic, normal inspection, normocephalic - Eye Eye exam: Present: normal appearance, conjuntiva pink, sclera anicteric - Neck Neck exam general surgery: Present: supple, trachea midline. Absent: lymphadenopathy, tenderness - Respiratory Respiratory exam: Present: CTAB. Absent: accessory muscle use, chest wall tenderness, rales, respiratory distress, rhonchi, wheezes - Cardiovascular Cardiovascular exam: Present: RRR, +S1, +S2. Absent: diastolic murmur, gallop, rubs, systolic murmur - GI/Abdominal GI/Abdominal exam: Present: normal bowel sounds, soft. Absent: distended, tenderness - Extremities Exam Extremities exam: Present: normal inspection, warm, radial pulses palpable and symmetrical. Absent: calf tenderness, cyanotic, pedal edema - Neurological Exam Neurological exam: Present: alert, oriented X3, no focal deficits. Absent: motor sensory deficit, facial droop, speech deficit - Skin Skin exam: Present: dry, intact, normal color, warm. Absent: rash
== END 2017-05-20 18:00 | disposition home or self-care (01) ==
LOC: EMEROO 16:35 → 3BNU 16:35
PROVIDERS: ADMIT Internal Medicine; ATTEND Registered Nurse

== ENCOUNTER 2018-06-21 15:34 | Observation (INO) ==
--- NOTE | 2018-06-21 15:52 | Emergency Department Note ---
Disposition Clinical Impression: Chest pain Qualifiers: Chest pain type: unspecified Qualified Code(s): R07.9 - Chest pain, unspecified Disposition: Admitted As Inpatient Condition: Fair Chest Pain HPI - General Chief Complaint: ED Chest Pain Stated Complaint: chest pain s/p stent tuesday Time Seen by Provider: 06/21/18 15:46 Source: patient Mode of arrival: ambulatory Limitations: no limitations Vital Signs Reviewed: Yes Nursing Notes Reviewed: Yes - History of Present Illness HPI Narrative: 63-year-old female presents emergency department with concern for chest pain. She describes a tightness that radiates up into the left side of her neck. States that prompted her visit to the emergency department. Patient had recent stent placement due to a previous stent that had evidence of occlusion. This was done 3 days ago. Patient is on Plavix daily. She states that she has taken her normal doses and has not skipped any of her medication. Patient reports taking 2 nitroglycerin prior to arrival. Stated that it helped out a little bit. Currently reporting chest pain and a 7 out of 10 in nature. Denies any lower extremity swelling or pain in her calves. Denies any hemoptysis. - Related Data Home Medications Medication Instructions Recorded Confirmed Aspirin [Lo-Dose Aspirin EC] 81 mg PO DAILY 04/25/17 06/21/18 Atorvastatin [Lipitor] 40 mg PO HS 04/25/17 06/21/18 Cholecalciferol (D-3) [Vitamin D] 1,000 unit PO DAILY 04/25/17 06/21/18 Ibuprofen [Motrin] 800 mg PO Q8HR PRN 04/25/17 06/21/18 Levothyroxine Sodium [Levoxyl] 150 mcg PO QAM 04/25/17 06/21/18 Metoprolol [Lopressor] 25 mg PO BID 04/25/17 06/21/18 Pantoprazole Sodium [Protonix] 40 mg PO DAILY 04/25/17 06/21/18 hydrOXYzine HCl [Hydroxyzine HCl] 25 mg PO HS 04/25/17 06/21/18 Metformin HCl [Glucophage] 1,000 mg PO BID 05/18/17 06/21/18 Nitroglycerin 0.3 mg SL Q5MIN PRN 05/18/17 06/21/18 Amiloride/HCTZ 5-50mg [Moduretic 1 each PO DAILY 06/19/18 06/21/18 5-50mg] Clopidogrel [Plavix] 75 mg PO DAILY 06/19/18 06/21/18 Isosorbide MONOnitrate (24 HR) 60 mg PO DAILY 06/21/18 06/21/18 [Imdur] Allergies Allergy/AdvReac Type Severity Reaction Status Date / Time simvastatin [From Zocor] AdvReac abdominal Verified 06/21/18 17:03 swelling All systems ED: reviewed and negative except as stated. Review of Systems: As Per HPI Constitutional: Denies: fever Cardiovascular: Reports: chest pain Respiratory: Denies: cough, dyspnea, hemoptysis Gastrointestinal: Denies: abdominal pain, nausea, vomiting Genitourinary: Denies: urgency, dysuria Musculoskeletal: Denies: back pain Integumentary: Denies: rash Neurological: Denies: headache, weakness, numbness, paresthesias Chest Pain PMH - Past Medical History Medical history: Reports: coronary artery disease, diabetes, GERD, hyperlipidemia, hypertension, myocardial infarction, thyroid disease, other Surgical history: Reports: angioplasty/stent, hysterectomy, orthopedic, other Psychiatric history: Reports: no psych history LINE CLOSER history: Reports: no LINE CLOSER history - Social History Smoking Status: Never smoker Alcohol use: Reports: none Drug use: Reports: none Physical Exam - General Limitations: no limitations General appearance: alert, in no apparent distress - Head Head exam: normocephalic - Eye Eye exam: Absent: scleral icterus - ENT ENT exam: mucous membranes moist - Neck Neck exam: Present: trachea midline - Chest Chest inspection: Present: symmetric chest wall rise - Respiratory Respiratory exam: Present: normal lung sounds bilaterally. Absent: respiratory distress, accessory muscle use - Cardiovascular Cardiovascular exam: Present: regular rate, normal rhythm, normal heart sounds - Abdominal Exam Abdominal exam: Present: soft, Non-Tender. Absent: distention, guarding, rebound, rigidity - Extremities Exam Extremities exam: Present: normal capillary refill. Absent: calf tenderness - Back Exam Back exam: Present: full ROM - Neurological Exam Neurological exam: Present: alert, oriented X3 - Psychiatric Psychiatric exam: Present: normal affect, normal mood - Skin Skin exam: Present: warm, dry, intact, normal color. Absent: rash Course - Reevaluation(s) Reevaluation #1: Patient went from pain that was 7 out of 10 to 3 out of 10 after 2 nitroglycer in. Time: 16:41 Vital Signs Temperature 97.5 F L 06/21/18 15:46 Pulse Rate 80 06/21/18 15:46 Respiratory Rate 18 06/21/18 15:46 Blood Pressure 161/77 06/21/18 15:46 O2 Sat by Pulse Oximetry 98 06/21/18 15:46 Temperature 97.5 F L 06/21/18 16:02 Pulse Rate 79 06/21/18 17:00 Respiratory Rate 21 06/21/18 17:00 Blood Pressure 133/64 06/21/18 17:00 O2 Sat by Pulse Oximetry 96 06/21/18 17:00 Oxygen Delivery Oxygen Delivery Room Air Chest Pain - MDM Narrative Medical decision making narrative: 63-year-old female presents emergency department with concern for chest pain typical of recent chest pain. We obtained an EKG. Did not reveal any evidence of ischemic ST changes. Patient was having typical angina-like symptoms from when she previously required a heart catheterization and stent placement. We gave subungual nitroglycerin. Patient's chest pain was 1 out of 10 after administration of 3 nitroglycerin. We have administered nitro paste. Patient has elevated troponin of 0.04. However, patient just received a heart catheterization 2 days ago. I would suspect that this would be higher after recent heart catheterization. We did administer 324 mg of chewable aspirin. Patient has been taking her daily Plavix. Spoke with the hospitalist regarding admission due to patient's angina-like symptoms for further observation. Do not suspect dissection at this time as patient not have a ripping pain, there was no widened mediastinum on chest x-ray, good radial pulses bilaterally, chest pain typical of angina. I did obtain a d-dimer as patient was not perc negative at low risk for pulmonary embolus with recent hospitalization and this was negative. She agrees that the patient. We discussed the possibility of administering heparin. The hospitalist stated that this would not be necessary at this time. I discussed the plan for admission with patient and family at bedside. They agreed with the plan. Patient was hemodynamically stable and not in acute distress at time of admission. Chest X-Ray 06/21/18 15:51 IMPRESSION: Negative low volume portable chest. D/ / Yasmani Anderson MD / Yasmani Andersno MD Interpreting Provider: Yasmani Anderson MD Vital Signs Temperature 97.5 F L 06/21/18 15:46 Pulse Rate 80 06/21/18 15:46 Respiratory Rate 18 06/21/18 15:46 Blood Pressure 161/77 06/21/18 15:46 O2 Sat by Pulse Oximetry 98 06/21/18 15:46 Temperature 97.5 F L 06/21/18 16:02 Pulse Rate 79 06/21/18 17:00 Respiratory Rate 21 06/21/18 17:00 Blood Pressure 133/64 06/21/18 17:00 O2 Sat by Pulse Oximetry 96 06/21/18 17:00 Oxygen Delivery Oxygen Delivery Room Air - Lab Data Result diagrams: 06/21/18 15:59 06/21/18 15:59 Lab Results 06/21/18 06/21/18 06/21/18 Range/Units 15:59 15:59 15:59 WBC 9.5 (4.3-11.1) K/mcL RBC 4.71 (3.82-4.97) M/mcL Hgb 13.7 (11.5-15.4) g/dL Hct 40.4 (35.3-44.9) % MCV 85.8 (83.0-100.0) fL MCH 29.1 (28.0-33.3) pg MCHC 33.9 (31.6-35.5) g/dL RDW 14.0 (11.5-14.5) % Plt Count 234 (140-400) K/mcL MPV 10.6 (9.4-12.4) fL Immature Gran % 0.2 (0-4) % Seg Neutrophils % 72.5 % Lymphocytes % 14.9 % Monocytes % 10.4 % Eosinophils % 1.6 % Basophils % 0.4 % Neutrophils # 6.9 (1.6-8.9) K/mcL Lymphocytes # 1.4 (0.6-4.6) K/mcL Monocytes # 1.0 (0.0-1.3) K/mcL Eosinophils # 0.2 (0.0-0.6) K/mcL Basophils # 0.0 (0.0-0.2) K/mcL PT 11.3 (9.4-12.1) Seconds INR 1.0 APTT 30.2 (26.0-36.0) Seconds D-Dimer 317 (0-500) ng/mLFEU Sodium 137 (136-145) mEq/L Potassium 3.6 (3.5-5.1) mEq/L Chloride 104 (98-107) mEq/L Carbon Dioxide 25 (23-29) mEq/L BUN 18 (8-23) mg/dL Creatinine 0.75 (0.60-1.20) mg/dL Est GFR ( Amer) > 60 (> 60) Est GFR (Non-Af Amer) > 60 (> 60) BUN/Creatinine Ratio 24 (6-26) Glucose 99 (70-105) mg/dL Calculated Osmolality 286 (280-300) Calcium 10.2 (8.6-10.3) mg/dL Troponin I 0.04 H* (< 0.04) ng/mL B-Natriuretic Peptide (Less than 100) pg/mL 06/21/18 Range/Units 15:59 WBC (4.3-11.1) K/mcL RBC (3.82-4.97) M/mcL Hgb (11.5-15.4) g/dL Hct (35.3-44.9) % MCV (83.0-100.0) fL MCH (28.0-33.3) pg MCHC (31.6-35.5) g/dL RDW (11.5-14.5) % Plt Count (140-400) K/mcL MPV (9.4-12.4) fL Immature Gran % (0-4) % Seg Neutrophils % % Lymphocytes % % Monocytes % % Eosinophils % % Basophils % % Neutrophils # (1.6-8.9) K/mcL Lymphocytes # (0.6-4.6) K/mcL Monocytes # (0.0-1.3) K/mcL Eosinophils # (0.0-0.6) K/mcL Basophils # (0.0-0.2) K/mcL PT (9.4-12.1) Seconds INR APTT (26.0-36.0) Seconds D-Dimer (0-500) ng/mLFEU Sodium (136-145) mEq/L Potassium (3.5-5.1) mEq/L Chloride (98-107) mEq/L Carbon Dioxide (23-29) mEq/L BUN (8-23) mg/dL Creatinine (0.60-1.20) mg/dL Est GFR ( Amer) (> 60) Est GFR (Non-Af Amer) (> 60) BUN/Creatinine Ratio (6-26) Glucose (70-105) mg/dL Calculated Osmolality (280-300) Calcium (8.6-10.3) mg/dL Troponin I (< 0.04) ng/mL B-Natriuretic Peptide 31 (Less than 100) pg/mL - Radiology Data Radiology results reviewed: Yes I reviewed the patient's radiology results. - EKG Data EKG attestation: Yes I reviewed and interpreted this EKG. EKG results narrative: 15:55 Heart rate 73 bpm, DE interval 140 ms, QRS duration 90 ms, QT 380 ms, QTC 419 ms, normal axis. Sinus rhythm ventricular rate 73 bpm. No evidence of any ischemic ST changes on this EKG. Attestation Statement - Attestation Attestation: I examined this patient and my medical decision-making was reviewed with the Resident Physician, Dr. Stevens. I agree with the documented findings, disposition and treatment plan as described except to the extent set forth below. Patient is a 63-year-old white female with a history of known coronary disease who had stent placement 3 days ago for reoccluded stent. Patient began having pain today left-sided chest radiating into her shoulder neck and jaw associated with some mild shortness of breath. Patient took nitroglycerin at home prior to arrival with minimal impact on her symptoms. Patient has been taking her medications as prescribed tolerating them well at home. She denies any sick be her new syncopal episodes, no fevers or chills, no cough or hemoptysis, no lower extremity pain. I agree with patient's physical exam findings as documented. Vital signs are stable patient's resting comfortably at bedside. She received aspirin and nitroglycerin and after 3 nitroglycerin had significant improvement of her pain and was radiating in a 1 out of 10 in severity. Patient had full lab evaluation including troponin as well as chest x-ray. Chest x-ray showed low lung volumes but otherwise negative. Laboratory evaluations within normal limits with the exception of a borderline elevated troponin. Patient will be admitted for further evaluation and management of her chest pain we will hold off on heparin at this time and patient will be given nitro paste due to significant improvement following nitroglycerin trial. Patient will be admitted to the hospitalist service for further management.
[2018-06-21] MEDS ORDERED: Aspirin 81 MG TAB.CHEW PO STA (16:00)
[2018-06-21 16:20] LABS: Basophils % 0.4 %; Eosinophils # 0.2 K/mcL (0.0-0.6); Eosinophils % 1.6 %; Hematocrit 40.4 % (35.3-44.9); Hemoglobin 13.7 g/dL (11.5-15.4); Immature Granulocytes % 0.2 % (0-4); Lymphocytes # 1.4 K/mcL (0.6-4.6); Lymphocytes % 14.9 %; Mean Corpuscular HGB Conc 33.9 g/dL (31.6-35.5); Mean Corpuscular Hemoglobin 29.1 pg (28.0-33.3); Mean Corpuscular Volume 85.8 fL (83.0-100.0); Mean Platelet Volume 10.6 fL (9.4-12.4); Monocytes % 10.4 %; Neutrophils # 6.9 K/mcL (1.6-8.9); Platelet Count 234 K/mcL (140-400); Red Blood Count 4.71 M/mcL (3.82-4.97); Segmented Neutrophils % 72.5 %
[2018-06-21] MEDS: Nitroglycerin 0.4 MG TAB.SUBL SL PRN ×3 (16:25→16:38)
[2018-06-21 16:27] LABS: Prothrombin Time 11.3 Seconds (9.4-12.1)
[2018-06-21 16:30] LABS: Activated Partial Thrombo Time 30.2 Seconds (26.0-36.0)
[2018-06-21 16:37] LABS: BUN/Creatinine Ratio 24 (6-26); Blood Urea Nitrogen 18 mg/dL (8-23); Calcium 10.2 mg/dL (8.6-10.3); Carbon Dioxide 25 mEq/L (23-29); Chloride 104 mEq/L (98-107); Glucose 99 mg/dL (70-105); Osmolality,Calculated 286 (280-300); Potassium 3.6 mEq/L (3.5-5.1); Sodium 137 mEq/L (136-145); eGFR For Non-African Americans > 60 (> 60)
[2018-06-21 16:47] LABS: Troponin I 0.04 ng/mL (< 0.04)
[2018-06-21] MEDS ORDERED: Nitroglycerin 1 INCH/GM PACKET TP ONE (16:56)
[2018-06-21] MEDS ORDERED: Ibuprofen 800 MG TABLET PO PRN (17:36)
[2018-06-21] MEDS ORDERED: *HR* Dextrose 50 % in Water (Syg) 50 ML SYRINGE IVP PRN (17:37)
[2018-06-21] MEDS ORDERED: Naloxone 0.4 MG/ML INJ IVP PRN (17:37)
[2018-06-21] MEDS ORDERED: D5% in Water 1,000 ML IVC PRN (17:37)
[2018-06-21] MEDS ORDERED: Dextrose Gel 15 GM/37.5 ML TUBE PO PRN ×2 (17:37)
--- NOTE | 2018-06-21 17:43 | Internal Med History&Physical ---
Date of Encounter: 06/21/18 Time of Encounter: 17:41 Internal Medicine - H&P: HPI Chief complaint: chest pain Admitted From: Home Plans for Post Hospital Care: Home History of present illness: Ms. Jones is a 63 year old female with a PMH of coronary artery disease (Single major vessel disease), diabetes, GERD, hyperlipidemia, hypertension, myocardial infarction, thyroid disease and recent stent placement 3 days ago. She presents with midsternal chest pain with radiation to bilateral shoulders described as a dull/pressure and initially 8/10 in intensity which began this morning. She reports that she is not having any exacerbating factors. The chest pain did improve with 2 sublingual nitroglycerin and is now 1/10. She does have some mild midsternal tenderness to palpation. She is 3 days S/P PTCA/SHIRA to mLAD and first diagonal. She denies missing any doses of Plavix or aspirin. While in the ED she was given 324 mg of chewable aspirin and a patch of Nitropaste was placed and her chest pain continued to improve. Initial troponin found to be elevated at 0.04. D-dimer obtained and found to be 317. Sh e denies any fevers, chills, cough, shortness of breath, abdominal pain, nausea, vomiting, diarrhea, unilateral extremity swelling and/or pain or weight gain. EKG showed NRS without any ST-T wave changes concerning for ischemia. 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 Past Med Surg Social Fam HX - Past Medical History Medical history: coronary artery disease, diabetes, GERD, hyperlipidemia, hypertension, myocardial infarction, thyroid disease, other Additional medical history: HYPERLIPIDEMIA, Psychiatric history: no psych history - Past Surgical History Surgical History: angioplasty/stent, hysterectomy, orthopedic, other - Social History Smoking Status: Never smoker Smokeless Tobacco Status: No Alcohol use: none Drug use: none - Family History Mother Hx Family Cardiac Disorders: Yes (CABG X 3) Hx Family Endocrine Disorder: Yes (DM) Sister Hx Family Cardiac Disorders: Yes (ND) Brother Hx Family Cardiac Disorders: Yes (ND) Internal Medicine - H&P: Meds Aspirin [Lo-Dose Aspirin EC] 81 mg PO DAILY 04/25/17 [History] Atorvastatin [Lipitor] 40 mg PO HS 04/25/17 [History] Cholecalciferol (D-3) [Vitamin D] 1,000 unit PO DAILY 04/25/17 [History] Ibuprofen [Motrin] 800 mg PO Q8HR PRN 04/25/17 [History] Levothyroxine Sodium [Levoxyl] 150 mcg PO QAM 04/25/17 [History] Metoprolol [Lopressor] 25 mg PO BID 04/25/17 [History] Pantoprazole Sodium [Protonix] 40 mg PO DAILY 04/25/17 [History] hydrOXYzine HCl [Hydroxyzine HCl] 25 mg PO HS 04/25/17 [History] Metformin HCl [Glucophage] 1,000 mg PO BID 05/18/17 [History] Nitroglycerin 0.3 mg SL Q5MIN PRN 05/18/17 [History] Amiloride/HCTZ 5-50mg [Moduretic 5-50mg] 1 each PO DAILY 06/19/18 [History] Clopidogrel [Plavix] 75 mg PO DAILY 06/19/18 [History] Isosorbide MONOnitrate (24 HR) [Imdur] 60 mg PO DAILY 06/21/18 [History] Allergy/AdvReac Type Severity Reaction Status Date / Time simvastatin [From Zocor] AdvReac abdominal Verified 06/21/18 17:03 swelling All Systems PM: A 10-system review of systems was performed and is negative for pertinent findings except as documented above in the HPI. - Constitutional Constitutional: no chills, no fever(s), no night sweats - EENT Eyes: no change in vision, no discharge, no pain, no photophobia Ears: no ear discharge, no ear pain, no tinnitus Nose, mouth and throat: no dysphagia, no nasal discharge, no neck pain, no sore throat - Cardiovascular Cardiovascular ROS IM: as per HPI - Respiratory Respiratory: dyspnea on exertion, no cough, no dyspnea, no wheezing, no excessive phlegm production - Gastrointestinal Gastrointestinal: no abdominal pain, no diarrhea, no hematemesis, no hematochezia, no melena, no nausea, no vomiting - Genitourinary Genitourinary: no change in urinary stream, no dysuria, no flank pain, no hematuria - Neurological Neurological ROS: no confusion, no convulsions, no focal weakness, no numbness, no tingling, no tremor(s) - Constitutional Vitals: Temp Pulse Resp BP Pulse Ox 97.5 F L 79 22 136/53 97 06/21/18 16:02 06/21/18 17:25 06/21/18 17:25 06/21/18 17:25 06/21/18 17:25 General appearance: Present: A&O X 3 Exam: see exam - Head Head exam: Present: atraumatic, normocephalic - Eye Eye exam: Present: PERRL, conjuntiva pink, sclera anicteric Pupils: Present: PERRL - Neck Neck exam general surgery: Present: supple, trachea midline. Absent: lymphadenopathy - Respiratory Respiratory exam: Present: chest wall tenderness (mild midsternal tenderness to palpation), CTAB. Absent: accessory muscle use, rales, rhonchi, wheezes - Cardiovascular Cardiovascular exam: Present: RRR, +S1, +S2. Absent: diastolic murmur, gallop, rubs, systolic murmur - GI/Abdominal GI/Abdominal exam: Present: normal bowel sounds, soft, no peritoneal signs. Absent: distended, tenderness - Extremities Exam Extremities exam: Present: warm, radial pulses palpable and symmetrical. Absent: calf tenderness, cyanotic, pedal edema - Neurological Exam Neurological exam: Present: CN II-XII intact, oriented X3, no focal deficits. Absent: pronater drift, facial droop, speech deficit - Skin Skin exam: Present: dry, intact Internal Med - H&P Results - Labs CBC & Chem 7: 06/21/18 15:59 06/21/18 15:59 Labs: Short CBC 06/21/18 Range/Units 15:59 WBC 9.5 (4.3-11.1) K/mcL Hgb 13.7 (11.5-15.4) g/dL Hct 40.4 (35.3-44.9) % Plt Count 234 (140-400) K/mcL Neutrophils # 6.9 (1.6-8.9) K/mcL BMP 06/21/18 15:59 Sodium 137 Potassium 3.6 Chloride 104 Carbon Dioxide 25 BUN 18 Creatinine 0.75 Glucose 99 Calcium 10.2 Cardiac Enzymes 06/21/18 Range/Units 15:59 Troponin I 0.04 H* (< 0.04) ng/mL - EKG Data -: EKG Interpreted by Myself EKG shows normal: sinus rhythm Rate: normal - EKG Data EKG comments: 06/21/18 17:43 normal sinus rhythm with ST-T wave changes concerning for ischemia - Impressions ITS Impressions Chest X-Ray 06/21/18 15:51 IMPRESSION: Negative low volume portable chest. D/ / Yasmani Anderson MD / Yasmani Anderson MD Interpreting Provider: Yasmani Anderson MD - Assessment and plan (1) Chest pain Current Visit: Yes Status: Acute Assessment and plan: Presents with midsternal chest pain described as intermittent and dull/pressure rated 8/10 which began this morning Improved with 2 sublingual nitroglycerin, now 1/10 Consider stable angina Recent PTCA/SHIRA to mid LAD and first diagonal 3 days ago On aspirin and Plavix, denies missing any doses Initial troponin found to be elevated at 0.04 EKG normal sinus rhythm rate of [address]-T wave changes concerning for ischemia We will admit overnight for observation and further monitoring Placed on telemetry Place Nitropaste on patient now SL nitroglycerin when necessary for chest pain Morphine when necessary for chest pain Serial troponins Consult cardio for further evaluation and recommendations-call in the morning Continue cardiac medications During last admission informal waiter/waitress recommended starting patient on Ranexa and continuing Imdur however the patient did not Ranexa d/t a pharmacy issue Qualifiers: Chest pain type: unspecified Qualified Code(s): R07.9 - Chest pain, unspecified (2) Stable angina Current Visit: Yes Status: Acute Assessment and plan: as above (3) CAD (coronary artery disease) Current Visit: No Status: Acute Assessment and plan: continue cardiac meds Qualifiers: Coronary Disease-Associated Artery/Lesion type: [place] artery [place] vs. transplanted heart: [place] heart Associated angina: angina presence unspecified Qualified Code(s): I25.10 - Atherosclerotic heart disease of [place] coronary artery without angina pectoris (4) Diabetes mellitus Current Visit: No Status: Chronic Assessment and plan: per hx start LSSIC AC/HS FSBG Adjust PRN Qualifiers: Diabetes mellitus type: type 2 Diabetes mellitus terminal gauger supervisor insulin use: without terminal gauger supervisor use Diabetes mellitus complication status: with neurologic complications Diabetes mellitus complication detail: with polyneuropathy Qualified Code(s): E11.42 - Type 2 diabetes mellitus with diabetic polyneuropathy (5) GERD (gastroesophageal reflux disease) Current Visit: No Status: Chronic Assessment and plan: continue PPI Qualifiers: Esophagitis presence: without esophagitis Qualified Code(s): K21.9 - G tanner-esophageal reflux disease without esophagitis (6) HTN (hypertension) Current Visit: No Status: Chronic Assessment and plan: per hx controlled continue anti-htn meds Qualifiers: Hypertension type: essential hypertension Qualified Code(s): I10 - Essential (primary) hypertension (7) Hypothyroidism Current Visit: No Status: Chronic Assessment and plan: continue synthroid Qualifiers: Hypothyroidism type: acquired Qualified Code(s): E03.9 - Hypothyroidism, unspecified (8) Morbid obesity with BMI of 40.0-44.9, adult Current Visit: No Status: Chronic Assessment and plan: Discussed lifestyle modifications (9) DVT prophylaxis Current Visit: No Status: Acute Assessment and plan: EPCD'S - Time Spent With Patient Total time spent is greater than 50% in coordination of care (as documented) at patient's floor/unit and/or counseling patient: less than 15 minutes
[2018-06-21] MEDS ORDERED: Insulin LISPRO 300 UNITS/3 ML VIAL SQ SCH (21:00)
[2018-06-21] MEDS: *HR* Morphine 2 MG/ML SYRINGE IVP SCH (21:03)
[2018-06-22] MEDS: Nitroglycerin 1 INCH/GM PACKET TP SCH ×3 (00:11→12:49)
[2018-06-22] MEDS: *HR* Morphine 2 MG/ML SYRINGE IVP SCH ×4 (00:13→12:48)
[2018-06-22 03:22] LABS: Hematocrit 38.4 % (35.3-44.9); Hemoglobin 13.1 g/dL (11.5-15.4); Immature Platelets 4.6 % (1.1-6.1); Mean Corpuscular HGB Conc 34.1 g/dL (31.6-35.5); Mean Corpuscular Hemoglobin 29.4 pg (28.0-33.3); Mean Corpuscular Volume 86.3 fL (83.0-100.0); Mean Platelet Volume 10.6 fL (9.4-12.4); Red Blood Count 4.45 M/mcL (3.82-4.97)
[2018-06-22 03:44] LABS: BUN/Creatinine Ratio 27 (6-26); Blood Urea Nitrogen 21 mg/dL (8-23); Calcium 9.6 mg/dL (8.6-10.3); Carbon Dioxide 25 mEq/L (23-29); Chloride 106 mEq/L (98-107); Glucose 153 mg/dL (70-105); Osmolality,Calculated 296 (280-300); Potassium 3.7 mEq/L (3.5-5.1); Sodium 140 mEq/L (136-145); eGFR For Non-African Americans > 60 (> 60)
[2018-06-22] MEDS: Insulin LISPRO 300 UNITS/3 ML VIAL SQ SCH ×2 (08:00→13:49)
[2018-06-22 08:24] VITALS: BP 135/80
--- NOTE | 2018-06-22 08:28 | Internal Med Progress Note ---
Hospitalist Progress Note - Encounter Date of Encounter: 06/22/18 Time of Encounter: 08:26 - Subjective Interval History: Patient seen and examined at bedside today, no acute changes overnight. Reports the chest pain is vastly improved overnight. She is continue to have intermittent 1/10 and midsternal chest pain. Will D/W cardiology this morning for further interventions and/or medication changes. - Exam Vitals: Temp Pulse Resp BP Pulse Ox 97.5 F L 66 14 135/80 95 06/22/18 07:52 06/22/18 07:52 06/22/18 07:52 06/22/18 08:22 06/22/18 07:52 Exam: PHYSICAL EXAMINATION: GENERAL: The patient is an elderly female who is alert and oriented 3 and in no acute distress HEENT: Head is normocephalic and atraumatic. Extraocular muscles are intact. Pupils are equal, round, and reactive to light and accommodation. NECK: Supple. No carotid bruits. No lymphadenopathy or thyromegaly. LUNGS: Clear to auscultation B/L AP and L. HEART: Regular rate and rhythm, S1, S2 without murmur. ABDOMEN: Soft, nontender, and nondistended. Positive bowel sounds. No he patosplenomegaly was noted. EXTREMITIES: Without any cyanosis, clubbing, rash, lesions or edema. NEUROLOGIC: Cranial nerves II through XII are grossly intact. SKIN: No ulceration or induration present. - Assessment and Plan (1) Chest pain Current Visit: Yes Status: Acute Assessment and Plan: Presents with midsternal chest pain described as intermittent and dull/pressure rated 8/10 which began this morning Improved with 2 sublingual nitroglycerin, now 1/10 Consider stable angina Recent PTCA/SHIRA to mid LAD and first diagonal 3 days ago On aspirin and Plavix, denies missing any doses Initial troponin found to be elevated at 0.04 EKG normal sinus rhythm rate of [address]-T wave changes concerning for ischemia We will admit overnight for observation and further monitoring Placed on telemetry Place Nitropaste on patient now SL nitroglycerin when necessary for chest pain Morphine when necessary for chest pain Serial troponins Consult cardio for further evaluation and recommendations-call in the morning Continue cardiac medications During last admission sat tutor recommended starting patient on Ranexa and continuing Imdur however the patient did not Ranexa d/t a pharmacy issue 06/22/18--chest pain improved overnight. Continue Tenormin 08/17 chest pain. Will discuss with cardiology this afternoon regarding medical management versus further interventions. If no further interventions are recommended at this time and medical management is the choice of therapy the patient will likely discharge this afternoon. (2) Stable angina Current Visit: Yes Status: Acute Assessment and Plan: As above (3) CAD (coronary artery disease) Current Visit: No Status: Acute Assessment and Plan: continue cardiac meds (4) Diabetes mellitus Current Visit: No Status: Chronic Assessment and Plan: per hx start LSSIC AC/HS FSBG Adjust PRN (5) GERD (gastroesophageal reflux disease) Current Visit: No Status: Chronic Assessment and Plan: continue PPI (6) HTN (hypertension) Current Visit: No Status: Chronic Assessment and Plan: per hx controlled continue anti-htn meds (7) Hypothyroidism Current Visit: No Status: Chronic Assessment and Plan: continue synthroid (8) Morbid obesity with BMI of 40.0-44.9, adult Current Visit: No Status: Chronic Assessment and Plan: Discussed lifestyle modifications (9) DVT prophylaxis Current Visit: No Status: Acute Assessment and Plan: EPCD'S - Time Spent with Patient Total time spent is greater than 50% in coordination of care (as documented) at patient's floor/unit and/or counseling patient: less than 15 minutes Plan of Care Discussed with: patient Internal Medicine: Result - Labs CBC & Chem 7: 06/22/18 03:13 06/22/18 03:13 Labs: Short CBC 06/21/18 06/22/18 Range/Units 15:59 03:13 WBC 9.5 6.9 (4.3-11.1) K/mcL Hgb 13.7 13.1 (11.5-15.4) g/dL Hct 40.4 38.4 (35.3-44.9) % Plt Count 234 208 (140-400) K/mcL Neutrophils # 6.9 (1.6-8.9) K/mcL BMP 06/21/18 06/22/18 15:59 03:13 Sodium 137 140 Potassium 3.6 3.7 Chloride 104 106 Carbon Dioxide 25 25 BUN 18 21 Creatinine 0.75 0.77 Glucose 99 153 H Calcium 10.2 9.6 Cardiac Enzymes 06/21/18 06/21/18 06/22/18 Range/Units 15:59 21:19 03:13 Troponin I 0.04 H* 0.04 H* 0.03 (< 0.04) ng/mL - ABG Interpretation ABG results: PT/INR, D-dimer PT 11.3 Seconds (9.4-12.1) 06/21/18 15:59 D-Dimer 317 ng/mLFEU (0-500) 06/21/18 15:59 - Impressions Impressions Chest X-Ray 06/21/18 15:51 IMPRESSION: Negative low volume portable chest. D/ / Yasmani Anderson MD / Yasmani Anderson MD Interpreting Provider: Yasmani Anderson MD Consult Discharge Plan - Plan Referrals: Kei Ospina MD [Partnered Physician] - (office will call with an appointment time and date ) Flower Gonzalez CNP [Primary Care Provider] - (Follow up appointment ahs been made will get a call from our office) (1) Chest pain Qualifiers: Chest pain type: unspecified Qualified Code(s): R07.9 - Chest pain, unspecified (3) CAD (coronary artery disease) Qualifiers: Coronary Disease-Associated Artery/Lesion type: [place] artery [place] vs. transplanted heart: [place] heart Associated angina: angina presence unspecified Qualified Code(s): I25.10 - Atherosclerotic heart disease of [place] coronary artery without angina pectoris (4) Diabetes mellitus Qualifiers: Diabetes mellitus type: type 2 Diabetes mellitus fpc insulin use: without fpc use Diabetes mellitus complication status: with neurologic complications Diabetes mellitus complication detail: with polyneuropathy Qualified Code(s): E11.42 - Type 2 diabetes mellitus with diabetic [place] (5) GERD (gastroesophageal reflux disease) Qualifiers: Esophagitis presence: without esophagitis Qualified Code(s): K21.9 - Gastro-esophageal reflux disease without esophagitis (6) HTN (hypertension) Qualifiers: Hypertension type: essential hypertension Qualified Code(s): I10 - Essential (primary) hypertension (7) Hypothyroidism Qualifiers: Hypothyroidism type: acquired Qualified Code(s): E03.9 - Hypothyroidism, uns pecified
[2018-06-22] MEDS ORDERED: Aspirin Enteric Coated 81 MG Tablet PO SCH (09:00)
[2018-06-22] MEDS ORDERED: Isosorbide MONOnitrate (24 HR) 60 MG TAB.ER.24H PO SCH (09:00)
[2018-06-22] MEDS ORDERED: Cholecalciferol (D-3) 1,000 UNIT TABLET PO SCH (09:00)
--- NOTE | 2018-06-22 11:14 | Discharge Summary ---
- NOTES TO OUTPATIENT PROVIDER Notes to Outpatient Provider: Admitted with stable angina. Cardio consulted. Recommend addition of Ranexa and to continue Imdur. CP resolved. Clinically stable at d/c. Instructed to f/u with PCP this coming week. F/u with cardiology s instructed. Please ensure cardio f/u. Date of Encounter: 06/22/18 Time of Encounter: 11:12 - Discharge Diagnosis (1) Chest pain Priority: Primary Status: Acute Assessment and Plan: Presents with midsternal chest pain described as intermittent and dull/pressure rated 8/10 which began this morning Improved with 2 sublingual nitroglycerin, now 1/10 Consider stable angina Recent PTCA/SHIRA to mid LAD and first diagonal 3 days ago On aspirin and Plavix, denies missing any doses Initial troponin found to be elevated at 0.04 EKG normal sinus rhythm rate of [address]-T wave changes concerning for ischemia We will admit overnight for observation and further monitoring Placed on telemetry Place Nitropaste on patient now SL nitroglycerin when necessary for chest pain Morphine when necessary for chest pain Serial troponins Consult cardio for further evaluation and recommendations-call in the morning Continue cardiac medications During last admission launch steward recommended starting patient on Ranexa and continuing Imdur however the patient did not Ranexa d/t a pharmacy issue 06/22/18--chest pain improved overnight. Continue to have intermittent 1/10 chest pain. Per cardio recommendation; add Rx Ranexa for stable angina. Qualifiers: Chest pain type: unspecified Qualified Code(s): R07.9 - Chest pain, unspecified (2) Stable angina Priority: Secondary Status: Acute (3) CAD (coronary artery disease) Priority: Secondary Status: Acute Qualifiers: Coronary Disease-Associated Artery/Lesion type: [place] artery [place] vs. transplanted heart: [place] heart Associated angina: angina presence unspecified Qualified Code(s): I25.10 - Atherosclerotic heart disease of [place] coronary artery without angina pectoris (4) Diabetes mellitus Priority: Secondary Status: Chronic Qualifiers: Diabetes mellitus type: type 2 Diabetes mellitus prison insulin use: without prison use Diabetes mellitus complication status: with neurologic complications Diabetes mellitus complication detail: with polyneuropathy Qualified Code(s): E11.42 - Type 2 diabetes mellitus with diabetic polyneuropathy (5) GERD (gastroesophageal reflux disease) Priority: Secondary Status: Chronic Qualifiers: Esophagitis presence: without esophagitis Qualified Code(s): K21.9 - Gastro-esophageal reflux disease without esophagitis (6) HTN (hypertension) Priority: Secondary Status: Chronic Qualifiers: Hypertension type: essential hypertension Qualified Code(s): I10 - Essential (primary) hypertension (7) Hypothyroidism Priority: Secondary Status: Chronic Qualifiers: Hypothyroidism type: acquired Qualified Code(s): E03.9 - Hypothyroidism, unspecified (8) Morbid obesity with BMI of 40.0-44.9, adult Priority: Secondary Status: Chronic (9) DVT prophylaxis Priority: Secondary Status: Acute Hospital course: Ms. Jones is a 63 year old female who was admitted with chest pain thought to be caused by stable angina. She is 4 days s/p PTCA/SHIRA to mLAD, AND 1 diag. CP improved with nitropaste. Serial troponins peaked at 0.04 then normalized at 0.03 and remained adynamic. No EKG changes concerning for ischemia. Cardio consulted and agree that chest pain likely caused by stable angina. Per cardio rec; add Ranexa 500 mg BID to home meds and continue all other cardiac meds including Imdur. F/u with PCP in 1-week and cardiology to schedule f/u. Discharge discussed with: patient, family, nurse, professional benefits sales consultant - Time Spent with Patient Total time spent providing and/or coordinating discharge services: Less than 30 minutes - Discharge Medications Prescriptions: Ranolazine [Ranexa] 500 mg PO BID 30 Days #60 tab.er.12h Home Medications: Aspirin [Lo-Dose Aspirin EC] 81 mg PO DAILY 04/25/17 [History] Atorvastatin [Lipitor] 40 mg PO HS 04/25/17 [History] Cholecalciferol (D-3) [Vitamin D] 1,000 unit PO DAILY 04/25/17 [History] Ibuprofen [Motrin] 800 mg PO Q8HR PRN 04/25/17 [History] Levothyroxine Sodium [Levoxyl] 150 mcg PO QAM 04/25/17 [History] Metoprolol [Lopressor] 25 mg PO BID 04/25/17 [History] Pantoprazole Sodium [Protonix] 40 mg PO DAILY 04/25/17 [History] hydrOXYzine HCl [Hydroxyzine HCl] 25 mg PO HS 04/25/17 [History] Metformin HCl [Glucophage] 1,000 mg PO BID 05/18/17 [History] Nitroglycerin 0.3 mg SL Q5MIN PRN 05/18/17 [History] Amiloride/HCTZ 5-50mg [Moduretic 5-50mg] 1 each PO DAILY 06/19/18 [History] Clopidogrel [Plavix] 75 mg PO DAILY 06/19/18 [History] Isosorbide MONOnitrate (24 HR) [Imdur] 60 mg PO DAILY 06/21/18 [History] Ranolazine [Ranexa] 500 mg PO BID 30 Days #60 tab.er.12h 06/22/18 [Rx] Allergies/Adverse Reactions: Allergy/AdvReac Type Severity Reaction Status Date / Time simvastatin [From Zocor] AdvReac abdominal Verified 06/21/18 17:03 swelling Date of admission: 06/21/18 17:05 Primary care physician: Flower Gonzalez CNP Consults: 06/21/18 17:36 Consult to Cardiology [CONS] Stat Comment: Consulting Provider: [facility] [place] Reason for Consult: chest pain Time Notified: 17:36 Call Completed: Yes Discharging clinician: Ozzie Denise Anticipated date of discharge: 06/22/18 - Constitutional Vitals: Temp Pulse Resp BP Pulse Ox 97.5 F L 66 14 135/80 95 06/22/18 07:52 06/22/18 07:52 06/22/18 07:52 06/22/18 08:22 06/22/18 07:52 General appearance: Present: A&O X 3 Exam: PHYSICAL EXAMINATION: GENERAL: The patient is an elderly female who is alert and oriented 3 and in no acute distress HEENT: Head is normocephalic and atraumatic. Extraocular muscles are intact. Pupils are equal, round, and reactive to light and accommodation. NECK: Supple. No carotid bruits. No lymphadenopathy or thyromegaly. LUNGS: Clear to auscultation B/L AP and L. HEART: Regular rate and rhythm, S1, S2 without murmur. ABDOMEN: Soft, nontender, and nondistended. Positive bowel sounds. No hepatosplenomegaly was noted. EXTREMITIES: Without any cyanosis, clubbing, rash, lesions or edema. NEUROLOGIC: Cranial nerves II through XII are grossly intact. SKIN: No ulceration or induration present. - Patient Status Disposition: Home, Self-Care Condition: Fair Functional capacity at discharge: independent ambulation Overall status at discharge: patient is back to baseline - Discharge Instructions Instructions: Chest Pain (DC) Follow Up With: Sherwin Bates CNP [Advanced Practice Nurse] - 07/28/18 8:00 am (Appointment will be in [place], please call the office with any questions.) Flower Gonzalez CNP [Primary Care Provider] - (Follow up appointment ahs been made will get a call from our office) - Diet and Activity Activity: increase activity as tolerated, resume usual activities as tolerated Diet: diabetic diet, low fat, low cholesterol, low salt diet
[2018-06-22] MEDS ORDERED: Ranolazine 500 MG TAB.ER.12H PO SCH (11:15)
--- NOTE | 2018-06-22 11:19 | Cardiology Consult Note ---
Addendum entered and electronically signed by Morgan Husain CNP 06/22/18 14:37: software release manager notified me that ranexa was 300$ a month for patient. Cardiology office notified to complete PA. In the mean time we will increase imdur. Original Note: <Morgan Husain - Last Filed: 06/22/18 11:23> Date of Encounter: 06/22/18 Time of Encounter: 11:14 Assessment and Plan (1) Chest pain Current Visit: Yes Status: Acute Ms. Jones is s/p recent PCI to the mLAD. LHC at that time also showed jailed 1st diagonal artery and she received PTCA down to 70%. There was a 50-60% stenosis in the RPDA. Last TTE 05/2017- Normal LV systolic function, LVEF 65-70%. Normal right ventricular size and function. Valvular function was not assessed on this limited study. EKG reviewed, shows NSR with no acute ST changes. Troponin 0.04, 0.04, 0.03. Not concerning for ACS. Recommend optimizing anti-anginal therapy. Continue imdur and add ranexa. Continue asa, brilinta, statin, and bb. Pt denies missed doses. She is currently pain free. F/u with Dr. Ospina will be coordinated. Qualifiers: Chest pain type: unspecified Qualified Code(s): R07.9 - Chest pain, u nspecified (2) CAD (coronary artery disease) Current Visit: No Status: Acute H/o Prior PCI in 2017 and 06/19/18. Continue medical therapy as described above. Qualifiers: Coronary Disease-Associated Artery/Lesion type: [place] artery [place] vs. transplanted heart: [place] heart Associated angina: angina presence unspecified Qualified Code(s): I25.10 - Atherosclerotic heart disease of [place] coronary artery without angina pectoris Discussion w patient/family: The assessment and plan as outlined above was discussed with the patient and/or family members who expressed understanding and agreement. All questions were answered. Thank you for involving us in the care of your patient. Please call with any questions. History of Present Illness Consult date: 06/22/18 Requesting physician: Ozzie Denise Consult reason: Chest pain Chief complaint: Chest pain History of present illness: Ms. Jones is a 63 year old female with past medical history of CAD s/p recent PCI to the LAD 06/19/18, HTN, and DM. She presented with the c/o chest pain that was ongoing since her LHC. She describes mid-sternal severe chest pain intermittently at rest. Yesterday she also noticed a new left sided sharp pain. She took two SL NTG without relief and decided to come to the ED. She states that she did have the same pain intermittently prior to her procedure and also severely during her LHC that did improve afterwards. On her LHC she was also noted to have a jailed first diagonal artery that received PTCA down to 70% stenosis and a 50-60% stenosis in the LPDA remaining. Cardiac work-up this admit included EKG with no acute ST changes. Troponin 0.04, 0.04, and 0.03. Cardiology consulted for further recommendations. Past Med Surg Social Fam HX - Past Medical History Attestation: Yes The following information was validated with the patient. Medical history: coronary artery disease, diabetes, GERD, hyperlipidemia, thyroid disease, other Additional medical history: HYPERLIPIDEMIA, Psychiatric history: no psych history - Past Surgical History Surgical History: angioplasty/stent, hysterectomy, orthopedic, other - Social History Smoking Status: Never smoker Smokeless Tobacco Status: No Alcohol use: none Drug use: none - Family History Mother Hx Family Cardiac Disorders: Yes (CABG X 3) Hx Family Endocrine Disorder: Yes (DM) Sister Hx Family Cardiac Disorders: Yes ([place]) Brother Hx Family Cardiac Disorders: Yes ([place]) Medications and Allergies Aspirin [Lo-Dose Aspirin EC] 81 mg PO DAILY 04/25/17 [History] Atorvastatin [Lipitor] 40 mg PO HS 04/25/17 [History] Cholecalciferol (D-3) [Vitamin D] 1,000 unit PO DAILY 04/25/17 [History] Ibuprofen [Motrin] 800 mg PO Q8HR PRN 04/25/17 [History] Levothyroxine Sodium [Levoxyl] 150 mcg PO QAM 04/25/17 [History] Metoprolol [Lopressor] 25 mg PO BID 04/25/17 [History] Pantoprazole Sodium [Protonix] 40 mg PO DAILY 04/25/17 [History] hydrOXYzine HCl [Hydroxyzine HCl] 25 mg PO HS 04/25/17 [History] Metformin HCl [Glucophage] 1,000 mg PO BID 10/11/17 [History] Nitroglycerin 0.3 mg SL Q5MIN PRN 05/18/17 [History] Amiloride/HCTZ 5-50mg [Moduretic 5-50mg] 1 each PO DAILY 06/19/18 [History] Clopidogrel [Plavix] 75 mg PO DAILY 06/19/18 [History] Isosorbide MONOnitrate (24 HR) [Imdur] 90 mg PO DAILY 30 Days #45 tab.er.24h 06/22/18 [Rx] Allergy/AdvReac Type Severity Reaction Status Date / Time simvastatin [From Zocor] AdvReac abdominal Verified 06/21/18 17:03 swelling All Systems Review: The remainder of the systems were reviewed and are negative Physical Examination Vital Signs, Last 4 Hours Temp Pulse Resp BP Pulse Ox 06/22/18 08:22 135/80 06/22/18 07:52 97.5 F L 66 14 100/65 95 General: Conversant, No Apparent Distress HEENT: Atraumatic, Normocephaly, Mucus Membranes Moist Neck: No JVD, Normal carotid pulses Cardiac: Reg Rate and Rhythm, Normal S1 and S2, No Murmur Lungs: Normal Breath Sounds, No Wheeze, Rales, Rhonchi Neuro: Alert and responsive, No focal deficits noted Abdomen: Soft, Non-Tender Skin: No rashes noted on visualized skin Musculoskeletal: No Chest Wall Tenderness Extremities: No Clubbing, No Cyanosis, No Edema, Normal Pulses Results 06/22/18 03:13 06/22/18 03:13 Lab Results 06/21/18 06/21/18 06/21/18 15:59 15:59 15:59 WBC 9.5 Hgb 13.7 Hct 40.4 Plt Count 234 INR 1.0 APTT 30.2 D-Dimer 317 Sodium 137 Potassium 3.6 Chloride 104 Carbon Dioxide 25 BUN 18 Creatinine 0.75 Glucose 99 Calcium 10.2 Troponin I 0.04 H* B-Natriuretic Peptide 06/21/18 06/21/18 06/22/18 15:59 21:19 03:13 WBC Hgb Hct Plt Count INR APTT D-Dimer Sodium Potassium Chloride Carbon Dioxide BUN Creatinine Glucose Calcium Troponin I 0.04 H* 0.03 B-Natriuretic Peptide 31 11/15/18 11/15/18 03:13 03:13 WBC 6.9 Hgb 13.1 Hct 38.4 Plt Count 208 INR APTT D-Dimer Sodium 140 Potassium 3.7 Chloride 106 Carbon Dioxide 25 BUN 21 Creatinine 0.77 Glucose 153 H Calcium 9.6 Troponin I B-Natriuretic Peptide - Imaging and Cardiology Cardiac cath: report reviewed - EKG Interpretation EKG results cardiology: personally reviewed Consult Discharge Plan - Plan Instructions: Chest Pain (DC) Referrals: Sherwin Bates CNP [Advanced Practice Nurse] - 07/28/18 8:00 am (Appointment will be in [place], please call the office with any questions.) Flower Gonzalez CNP [Primary Care Provider] - (The office will call you with a follow up appt.) Prescriptions: Isosorbide MONOnitrate (24 HR) [Imdur] 90 mg PO DAILY 30 Days #45 tab.er.24h <Sam Mathur - Last Filed: 06/22/18 15:24> Date of Encounter: 06/22/18 - Attending Attestation I have personally performed a face to face evaluation on this patient. I have reviewed and agree with the documented findings and care plan as documented by the COURT WORKER. History and Exam by me shows: 63-year-old female with history of CAD with cardiac catheterization performed on 06/19/2018 s/p PCI of 60% Mid LADs stenosis and 95% jailed D1 stenosis with residual 70% stenosis. 50-60% stenosis in the Left PDA, presenting with chest pain at rest. Currently chest pain-free. I agree with optimization of medical therapy with Ranexa 500 mg twice a day. Continue DAPT, beta jin, CLARIBEL inhibitor, Imdur, high intensity statin. Cardiac rehabilitation and follow-up with supervising editor news reel. Thanks, Sam Mathur MD Assessment and Plan Discussion w patient/family: The assessment and plan as outlined above was discussed with the patient and/or family members who expressed understanding and agreement. All questions were answered. Thank you for involving us in the care of your patient. Please call with any questions. History of Present Illness History of present illness: Ms. Jones is a 63 year old female All Systems Review: The remainder of the systems were reviewed and are negative Results 06/22/18 03:13 06/22/18 03:13 Lab Results 06/21/18 06/21/1806/21/18 15:59 15:59 15:59 WBC 9.5 Hgb 13.7 Hct 40.4 Plt Count 234 INR 1.0 APTT 30.2 D-Dimer 317 Sodium 137 Potassium 3.6 Chloride 104 Carbon Dioxide 25 BUN 18 Creatinine 0.75 Glucose 99 Calcium 10.2 Troponin I 0.04 H* B-Natriuretic Peptide 06/21/18 06/21/18 06/22/18 15:59 21:19 03:13 WBC Hgb Hct Plt Count INR APTT D-Dimer Sodium Potassium Chloride Carbon Dioxide BUN Creatinine Glucose Calcium Troponin I 0.04 H* 0.03 B-Natriuretic Peptide 31 06/22/18 06/22/18 03:13 03:13 WBC 6.9 Hgb 13.1 Hct 38.4 Plt Count 208 INR APTT D-Dimer Sodium 140 Potassium 3.7 Chloride 106 Carbon Dioxide 25 BUN 21 Creatinine 0.77 Glucose 153 H Calcium 9.6 Troponin I B-Natriuretic Peptide
[2018-06-22] MEDS ORDERED: Isosorbide MONOnitrate (24 HR) 30 MG TAB.ER.24H PO ONE (14:45)
[2018-06-23] MEDS ORDERED: Isosorbide MONOnitrate (24 HR) 60 MG TAB.ER.24H PO SCH (09:00)
--- NOTE | 2018-06-25 09:30 | Electrocardiograph Report ---
[place] [id number] Test Date: 2018-06-21 Pat Name: Gely Jones Department: EXAMC2 Room: [facility] Gender: F Project Administrative Assistant: : 1955 Requested By: Jayden Stevens Order Number: [id number] Reading MD: Yuliya Gregory Measurements Intervals [place] Rate: 73 P: 13 FL: 140 QRS: 48 QRSD: 90 T: 37 QT: 380 QTc: 419 Interpretive Statements Sinus rhythm Electronically Signed On 06-25-2018 9:28:56 EST by Yuliya Gregory
== END 2018-06-22 16:00 | disposition home or self-care (01) ==
LOC: 3BNU 15:34 → EMEROOARM 15:34 → 3BNU 17:40
PROVIDERS: ADMIT Internal Medicine; ATTEND Internal Medicine